=== PATIENT | male | born 1965 | race Caucasian/White ===

== ENCOUNTER 2017-11-15 12:51 | Emergency (ER) | payer MEDICAID ==
[~2017-11-15] VITALS: Ht 182.9 cm; Wt 149.7 kg
[2017-11-15 12:51] VITALS: BP_SYST 137
[2017-11-15] MEDS ORDERED: NACL 0.9% 1,000 ML IV ONE (13:22)
[2017-11-15 14:31] LABS: ANION GAP 5 (5-15); CALCIUM 9.8 mg/dL (8.4-11.0); CHLORIDE 102 mmol/L (98-107); CREATININE 0.93 mg/dL (0.55-1.30); GLUCOSE 108 mg/dL (70-99); POTASSIUM 4.2 mmol/L (3.5-5.1); SODIUM SERUM 139 mmol/L (136-145); UREA NITROGEN, BLOOD 7 mg/dL (8-21)
[2017-11-15 14:33] LABS: GFR AFRICAN AMERICAN 111 mL/min (>90)
[2017-11-15 14:34] LABS: BASOPHILS % (AUTO) 0.5 % (0.0-2.0); EOSINOPHILS # (AUTO) 0.1 K/uL (0.0-0.4); EOSINOPHILS % (AUTO) 1.9 % (0.0-4.0); HEMATOCRIT 47.1 % (36-54); HEMOGLOBIN 15.8 g/dL (14.0-18.0); LYMPHOCYTES # (AUTO) 0.9 K/uL (1.0-5.5); LYMPHOCYTES % (AUTO) 13.5 % (20.5-51.5); MEAN CORPUSCULAR HEMOGLOBIN 31 pg (27-31); MEAN CORPUSCULAR HGB CONC 34 % (32-36); MEAN CORPUSCULAR VOLUME 92 fL (79.0-98.0); MONOCYTES # (AUTO) 0.5 K/uL (0.0-1.0); MONOCYTES % (AUTO) 6.7 % (1.7-9.3); NEUTROPHILS # (AUTO) 5.5 K/uL (1.8-7.7); NEUTROPHILS % (AUTO) 77.4 % (40.0-70.0); PLATELET COUNT (AUTO) 272 K/uL (130-430); RED BLOOD CELL COUNT(AUTO) 5.11 MIL/uL (4.2-6.2); RED CELL DISTRIBUTION WIDTH 13.8 % (9.0-15.0)
[2017-11-15 14:39] LABS: ALANINE AMINOTRANSFERASE 21 U/L (12-78); ALBUMIN 4.4 g/dL (3.4-4.8); ASPARTATE AMINOTRANSFERASE 14 U/L (10-37); TOTAL BILIRUBIN 0.9 mg/dL (0.0-1.0)
[2017-11-15 14:42] LABS: ACETAMINOPHEN < 1 ug/mL (1-30); ALCOHOL, BLOOD < 3 mg/dL (<10)
[2017-11-15] MEDS ORDERED: KETOROLAC TROMETHAMINE 30 MG VIAL IVP ONE (15:00)
[2017-11-15 15:21] LABS: BARBITURATE, URINE NEGATIVE (NEG <=200); BENZODIAZEPINE, URINE POSITIVE (NEG <=150); CANNABINOID, URINE NEGATIVE (NEG <=50); COCAINE, URINE POSITIVE (NEG <=150); METHAMPHETAMINES SCREEN,URINE NEGATIVE (NEG <=500); OPIATE, URINE POSITIVE (NEG <=100); PHENCYCLIDINE SCREEN,URINE NEGATIVE (NEG <=25); UR TRICYCLIC ANTIDEPRESSANTS NEGATIVE (NEG <=300); URINE AMPHETAMINE NEGATIVE (NEG <=500); URINE METHADONE NEGATIVE (NEG <=200); URINE OXYCODONE SCREEN NEGATIVE (NEG <=100); URINE PROPOXYPHENE SCREEN NEGATIVE (NEG <=300)
[2017-11-15 16:20] VITALS: BP_SYST 169
== END 2017-11-15 16:20 | disposition home or self-care (01) ==
LOC: SED 12:51
DX: R55 Syncope and collapse (principal); F19.10 Other psychoactive substance abuse, uncomplicated; F32.9 Major depressive disorder, single episode, unspecified; J45.909 Unspecified asthma, uncomplicated; I10 Essential (primary) hypertension
CPT/HCPCS: 36415; 70450; 71045; 72040; 80053; 80307; 84484; 85025; 93005; 96361; 96374; 99285; G0480; G0481; G0482; J1885; J7030

== ENCOUNTER 2019-07-20 17:26 | Emergency (ER) | payer MEDICAID ==
[~2019-07-20] VITALS: Ht 185.4 cm; Wt 154.2 kg
[2019-07-20 18:20] VITALS: BP_SYST 182
--- NOTE | 2019-07-20 18:24 | NUR ---
Patient triaged and placed in waiting room. VSS and patient appears in no acute distress at this time. Accompanied by self, awaiting available bed, and MD notified of need for MSE.
--- NOTE | 2019-07-20 21:53 | NUR ---
Patient to ER bed 1 to gown for evaluation. Side rails up. Report given to Yvonne BRASWELL.
--- NOTE | 2019-07-20 22:01 | NUR ---
Patient brought in [facility] for laceration to the left FA at 1400 today. Patient reports that he accidentally stabbed himself with a steak knife while cleaning today. 2.5 cm laceration noted to left forearm. Bleeding controlled. Upon arrival, patient had full range of motion with radial pulse present. Skin was warm and dry. Not reports that he is having weakness and pain to left arm. Patient reports he is unable to extend his fingers. Denies any nausea, vomiting or diarrhea. Last tetanus vaccine reports was 2 years ago. No other complaints/injuries per patient or as noted. Will continue to monitor.
--- NOTE | 2019-07-20 23:05 | NUR ---
Patient requesting medication for pain. Pain 03/12. MD notified.
[2019-07-20] MEDS ORDERED: KETOROLAC TROMETHAMINE 60 MG/2 ML VIAL IM ONE (23:15)
--- NOTE | 2019-07-20 23:22 | NUR ---
ER Dr. Ching at bedside examining patient.
[2019-07-20] MEDS ORDERED: MORPHINE 4 MG/ML INJ. SYRINGE IV ONE (23:30)
[2019-07-20] MEDS ORDERED: CEFAZOLIN 2 GM IVPB PREMIX 50 ML IV ONE (23:45)
[2019-07-21] MEDS ORDERED: CEFAZOLIN 2 GM IVPB PREMIX 50 ML IV ONE (00:11)
[2019-07-21 00:25] LABS: RED CELL DISTRIBUTION WIDTH 13.7 % (9.0-15.0)
[2019-07-21 00:29] LABS: CALCIUM 8.7 mg/dL (8.4-11.0); CREATININE 0.56 mg/dL (0.55-1.30); POTASSIUM 3.5 mmol/L (3.5-5.1)
[2019-07-21 00:31] LABS: BASOPHILS # (AUTO) 0.1 K/uL (0.0-0.2); BASOPHILS % (AUTO) 0.7 % (0.0-2.0); EOSINOPHILS # (AUTO) 0.3 K/uL (0.0-0.4); EOSINOPHILS % (AUTO) 3.3 % (0.0-4.0); HEMATOCRIT 42.9 % (36-54); HEMOGLOBIN 14.4 g/dL (14.0-18.0); LYMPHOCYTES # (AUTO) 2.3 K/uL (1.0-5.5); LYMPHOCYTES % (AUTO) 24.8 % (20.5-51.5); MEAN CORPUSCULAR HEMOGLOBIN 30 pg (27-31); MEAN CORPUSCULAR HGB CONC 34 % (32-36); MEAN CORPUSCULAR VOLUME 90 fL (79.0-98.0); MONOCYTES # (AUTO) 0.5 K/uL (0.0-1.0); MONOCYTES % (AUTO) 5.1 % (1.7-9.3); NEUTROPHILS % (AUTO) 66.1 % (40.0-70.0); PLATELET COUNT (AUTO) 205 K/uL (130-430); RED BLOOD CELL COUNT(AUTO) 4.77 MIL/uL (4.2-6.2); WHITE BLOOD COUNT (AUTO) 9.1 K/uL (4.8-10.8)
--- NOTE | 2019-07-21 00:52 | NUR ---
off unit to CT Scan
[2019-07-21] MEDS ORDERED: IOHEXOL 100 ML IV ONE (01:02)
[2019-07-21] MEDS ORDERED: IOHEXOL 350 mgI/mL, 150 ML INFUS..BTL IV ONE (01:05)
--- NOTE | 2019-07-21 01:18 | NUR ---
Patient complaining of pain 03/12. MD notified.
[2019-07-21] MEDS ORDERED: fentaNYL CITRATE/PF 100 MCG/2 ML AMP IVP ONE (01:45)
--- NOTE | 2019-07-21 01:57 | NUR ---
ER Dr. Ching at bedside examining patient.
--- NOTE | 2019-07-21 02:09 | NUR ---
medicated per md orders. patient tolerated well
[2019-07-21 03:53] VITALS: BP_SYST 155
--- NOTE | 2019-07-21 03:54 | NUR ---
Patient to be transferred to [facility]. Is being transferred due to higher level of care. Receiving facility has accepting physician and available space. ER physician has signed transfer form. Patient or responsible constitution party has agreed to transfer and signed form. Patient belongings inventoried and will be sent with patient. Copy of nursing notes, lab reports, EKG, Physicians Orders and X-rays to be sent with patient. Report called to Josefina at receiving facility. Receiving physician is DR. MARCELO. [facility] ambulance service has been called for transfer.
== END 2019-07-21 03:53 | disposition short-term general hospital (02) ==
LOC: SED 17:26
DX: S56.522A Laceration of other extensor muscle, fascia and tendon at forearm level, left arm, initial encounter (principal); J45.909 Unspecified asthma, uncomplicated; I10 Essential (primary) hypertension; W26.0XXA Contact with knife, initial encounter; Y93.89 Activity, other specified; Y92.89 Other specified places as the place of occurrence of the external cause; Y99.8 Other external cause status
CPT/HCPCS: 36415; 73090; 73206; 80048; 85025; 86886; 86900; 86901; 96365; 96372; 96375 ×2; 99285; J0690; J1885; J2270; J3010; Q9967 ×2

== ENCOUNTER 2021-12-21 13:38 | Emergency (ER) | payer MEDICAID ==
[2021-12-21 13:53] VITALS: BP_SYST 132
[2021-12-21 14:14] VITALS: BP_SYST 132
[2021-12-21] MEDS ORDERED: methylPREDNISolone SOD SUCC/PF 62.5 MG/ML VIAL IVP ONE (14:30)
[2021-12-21] MEDS ORDERED: ALBUTEROL SULFATE 0.083% 2.5 MG/3 ML VIAL.NEB INH ONE (14:30)
[2021-12-21 14:53] LABS: BASOPHILS % (AUTO) 0.1 % (0.0-2.0); EOSINOPHILS # (AUTO) 0.8 K/uL (0.0-0.4); EOSINOPHILS % (AUTO) 6.7 % (0.0-4.0); HEMATOCRIT 42.6 % (36-54); HEMOGLOBIN 13.7 g/dL (14.0-18.0); LYMPHOCYTES % (AUTO) 8.9 % (20.5-51.5); MEAN CORPUSCULAR HEMOGLOBIN 29 pg (27-31); MEAN CORPUSCULAR HGB CONC 32 % (32-36); MEAN CORPUSCULAR VOLUME 89 fL (79.0-98.0); MONOCYTES # (AUTO) 0.7 K/uL (0.0-1.0); NEUTROPHILS # (AUTO) 9.2 K/uL (1.8-7.7); NEUTROPHILS % (AUTO) 78.3 % (40.0-70.0); PLATELET COUNT (AUTO) 187 K/uL (130-430); RED CELL DISTRIBUTION WIDTH 14.7 % (9.0-15.0); WHITE BLOOD COUNT (AUTO) 11.7 K/uL (4.8-10.8)
[2021-12-21 15:12] LABS: ANION GAP 3 (5-15); CALCIUM 8.4 mg/dL (8.4-11.0); CHLORIDE 104 mmol/L (98-107); CREATININE 0.98 mg/dL (0.55-1.30); GLUCOSE 121 mg/dL (70-99); POTASSIUM 4.4 mmol/L (3.5-5.1); SODIUM SERUM 138 mmol/L (136-145); UREA NITROGEN, BLOOD 29 mg/dL (8-21)
[2021-12-21 15:20] LABS: ALANINE AMINOTRANSFERASE 24 U/L (12-78); ASPARTATE AMINOTRANSFERASE 27 U/L (10-37); TOTAL BILIRUBIN 0.1 mg/dL (0.0-1.0)
[2021-12-21 15:22] LABS: GFR AFRICAN AMERICAN 103 mL/min (>90)
[2021-12-21] MEDS ORDERED: ALBU2.5V7 INH (15:38)
[2021-12-21] MEDS ORDERED: PRED20TA PO (15:38)
== END 2021-12-21 16:20 | disposition home or self-care (01) ==
LOC: SED 13:38
DX: J45.901 Unspecified asthma with (acute) exacerbation (principal); R06.02 Shortness of breath; I10 Essential (primary) hypertension; Z88.2 Allergy status to sulfonamides; Z79.899 Other long term (current) drug therapy
CPT/HCPCS: 80053; 85025; 84484; 36415; 93005; 71045; 94640; 99285; 96374; J2930; J7613; 94760

== ENCOUNTER 2022-05-04 16:59 | Inpatient (IN) | payer MEDICAID ==
[~2022-05-04] VITALS: Ht 185.4 cm; Wt 119.3 kg
[2022-05-04] MEDS: PIPERACILLIN/TAZO 4.5GM/DEX-IS 100 ML IV SCH (03:00)
[~2022-05-04 16:59] MED LIST: ALBU2.5V7 INH
[2022-05-04] MEDS ORDERED: IPRATROPIUM/ALBUTEROL SULFATE 3 ML AMPUL.NEB (DUONEB) ONE (17:09)
[2022-05-04] MEDS ORDERED: ALBUTEROL SULFATE 0.083% 2.5 MG/3 ML VIAL.NEB INH ONE ×3 (17:15→22:30)
[2022-05-04] MEDS ORDERED: predniSONE 20 MG TABLET PO ONE (17:15)
[2022-05-04] MEDS ORDERED: IPRATROPIUM BROM 0.5 MG/2.5 ML VIAL.NEB (ATROVENT) INH ONE (17:15)
[2022-05-04 17:21] VITALS: BP_SYST 160
[2022-05-04] MEDS ORDERED: NACL 0.9% 1,000 ML IV ONE (19:45)
[2022-05-04] MEDS ORDERED: MAGNESIUM SULFATE 50 ML IV ONE (19:45)
[2022-05-04] MEDS ORDERED: VECURONIUM BROMIDE 10 MG/VIAL (NORCURON) ONE (19:59)
[2022-05-04] MEDS ORDERED: fentaNYL CITRATE/PF 100 MCG/2 ML AMP ONE (20:26)
[2022-05-04] MEDS ORDERED: PROPOFOL DRIP 100 ML IV ONE ×2 (20:30→21:45)
[2022-05-04 20:54] LABS: BASOPHILS # (AUTO) 0.4 K/uL (0.0-0.2); BASOPHILS % (AUTO) 1.5 % (0.0-2.0); HEMATOCRIT 45.2 % (36-54); HEMOGLOBIN 14.4 g/dL (14.0-18.0); LYMPHOCYTES # (AUTO) 2.9 K/uL (1.0-5.5); LYMPHOCYTES % (AUTO) 11.6 % (20.5-51.5); MEAN CORPUSCULAR HEMOGLOBIN 30 pg (27-31); MEAN CORPUSCULAR HGB CONC 32 % (32-36); MEAN CORPUSCULAR VOLUME 93 fL (79.0-98.0); MONOCYTES # (AUTO) 1.1 K/uL (0.0-1.0); MONOCYTES % (AUTO) 4.6 % (1.7-9.3); NEUTROPHILS # (AUTO) 18.4 K/uL (1.8-7.7); NEUTROPHILS % (AUTO) 74.3 % (40.0-70.0); PLATELET COUNT (AUTO) 275 K/uL (130-430); RED BLOOD CELL COUNT(AUTO) 4.87 MIL/uL (4.2-6.2); RED CELL DISTRIBUTION WIDTH 14.9 % (9.0-15.0); WHITE BLOOD COUNT (AUTO) 24.8 K/uL (4.8-10.8)
[2022-05-04 21:02] LABS: CALCIUM 8.7 mg/dL (8.4-11.0); CREATININE 0.99 mg/dL (0.55-1.30)
[2022-05-04 21:08] LABS: ALBUMIN 3.8 g/dL (3.4-4.8); TOTAL BILIRUBIN 0.2 mg/dL (0.0-1.0)
[2022-05-04] MEDS: METHYLPREDNISOLONE SOD SUCC 40 MG/ML VIAL IVP SCH (21:45)
[2022-05-04] MEDS ORDERED: AZITHROMYCIN 500 MG in NS 250 ML IV ONE (21:45)
[2022-05-04] MEDS ORDERED: cefTRIAXone 1 GM in D5W 50 ML IV SCH (21:45)
[2022-05-04] MEDS ORDERED: iohexoL 350 mgI/mL, 100 ML INFUS..BTL IV ONE (21:49)
[2022-05-04] MEDS ORDERED: D5LR 1,000 ML IV SCH (22:00)
[2022-05-04] MEDS ORDERED: methylPREDNISolone SOD SUCC/PF 62.5 MG/ML VIAL IVP ONE (22:30)
[2022-05-04] MEDS ORDERED: RACEPINEPHRINE HCL 0.5 ML VIAL.NEB INH ONE ×2 (23:00→23:34)
[2022-05-04 23:54] VITALS: BP_SYST 160
[2022-05-05] VITALS (34 sets, daily range): BP systolic 80–185
[2022-05-05] MEDS: IPRATROPIUM/ALBUTEROL SULFATE 3 ML AMPUL.NEB (DUONEB) INH SCH ×7 (00:15→23:05)
[2022-05-05] MEDS ORDERED: PIPERACILLIN/TAZOBACTAM 4.5 GM/VIAL (ZOSYN) IV ONE (01:20)
[2022-05-05] MEDS ORDERED: cefTRIAXone 1 GM IVPB PREMIX 50 ML IV ONE (01:20)
[2022-05-05] MEDS ORDERED: AZITHROMYCIN 500 MG/VIAL (ZITHROMAX) IV ONE (01:20)
[2022-05-05] MEDS ORDERED: NOREPINEPHRINE BITARTRATE 8 MG in NS 242 ML IV PRN (02:00)
[2022-05-05] MEDS ORDERED: NOREPINEPHRINE 4 MG/4 ML VIAL IV ONE (02:01)
[2022-05-05] MEDS: PROPOFOL DRIP 100 ML IV PRN ×7 (02:26→23:37)
[2022-05-05] MEDS: LR 1,000 ML IV SCH ×4 (02:45→22:34)
[2022-05-05] MEDS: METHYLPREDNISOLONE SOD SUCC 40 MG/ML VIAL IVP SCH ×4 (03:45→21:05)
[2022-05-05] MEDS: PIPERACILLIN/TAZO 4.5GM/DEX-IS 100 ML IV SCH ×2 (06:00)
[2022-05-05] MEDS: PIPERACILLIN/TAZO 3.375/DEX-IS 50 ML IV SCH ×4 (06:00→23:58)
[2022-05-05 07:46] LABS: ALBUMIN 3.2 g/dL (3.4-4.8); CALCIUM 7.9 mg/dL (8.4-11.0); CREATININE 1.24 mg/dL (0.55-1.30); TOTAL BILIRUBIN 0.4 mg/dL (0.0-1.0)
[2022-05-05 08:13] LABS: HEMATOCRIT 43.6 % (36-54); HEMOGLOBIN 14.2 g/dL (14.0-18.0); MEAN CORPUSCULAR HEMOGLOBIN 30 pg (27-31); MEAN CORPUSCULAR HGB CONC 33 % (32-36); MEAN CORPUSCULAR VOLUME 92 fL (79.0-98.0); PLATELET COUNT (AUTO) 221 K/uL (130-430); RED BLOOD CELL COUNT(AUTO) 4.76 MIL/uL (4.2-6.2); RED CELL DISTRIBUTION WIDTH 14.5 % (9.0-15.0); WHITE BLOOD COUNT (AUTO) 29.3 K/uL (4.8-10.8)
[2022-05-05] MEDS: FENTANYL CITRATE-0.9 % NACL/PF 100 ML IV PRN ×2 (08:31→20:29)
[2022-05-05] MEDS ORDERED: VANCOMYCIN HCL 1,500 MG in NS 250 ML IV SCH (13:00)
[2022-05-05] MEDS: AZITHROMYCIN 500 MG in NS 250 ML IV SCH (13:22)
[2022-05-05 14:04] LABS: BAND % (MANUAL) 8 % (0-6); BASOPHILS % (MANUAL) 0 % (0-2); EOSINOPHILS % (MANUAL) 0 % (0-7); LYMPHOCYTES % (MANUAL) 3 % (20-46); MONOCYTES % (MANUAL) 2 % (0-11)
[2022-05-05] MEDS ORDERED: MIDAZOLAM IN NACL,ISO-OSMOT/PF 100 ML IV ONE (21:55)
[2022-05-05] MEDS: MIDAZOLAM IN NACL,ISO-OSMOT/PF 100 ML IV PRN (22:00)
[2022-05-06] VITALS (34 sets, daily range): BP systolic 120–188
[2022-05-06] MEDS: IPRATROPIUM/ALBUTEROL SULFATE 3 ML AMPUL.NEB (DUONEB) INH SCH ×6 (03:10→23:30)
[2022-05-06] MEDS: METHYLPREDNISOLONE SOD SUCC 40 MG/ML VIAL IVP SCH ×4 (03:45→22:10)
[2022-05-06] MEDS: LR 1,000 ML IV SCH ×3 (04:40→17:23)
[2022-05-06] MEDS: cloNIDine HCL 0.1 MG TABLET PO PRN ×4 (06:00→20:05)
[2022-05-06] MEDS ORDERED: cloNIDine HCL 0.2 MG TABLET ONE (06:00)
[2022-05-06] MEDS: PIPERACILLIN/TAZO 3.375/DEX-IS 50 ML IV SCH ×3 (07:06→17:30)
[2022-05-06 07:22] LABS: BASOPHILS % (AUTO) 0.1 % (0.0-2.0); HEMOGLOBIN 13.3 g/dL (14.0-18.0); LYMPHOCYTES # (AUTO) 0.3 K/uL (1.0-5.5); LYMPHOCYTES % (AUTO) 1.5 % (20.5-51.5); MEAN CORPUSCULAR HEMOGLOBIN 30 pg (27-31); MEAN CORPUSCULAR HGB CONC 33 % (32-36); MEAN CORPUSCULAR VOLUME 89 fL (79.0-98.0); MONOCYTES # (AUTO) 0.4 K/uL (0.0-1.0); MONOCYTES % (AUTO) 1.8 % (1.7-9.3); PLATELET COUNT (AUTO) 165 K/uL (130-430); RED BLOOD CELL COUNT(AUTO) 4.51 MIL/uL (4.2-6.2); RED CELL DISTRIBUTION WIDTH 14.5 % (9.0-15.0); WHITE BLOOD COUNT (AUTO) 19.7 K/uL (4.8-10.8)
[2022-05-06 07:47] LABS: CALCIUM 8.5 mg/dL (8.4-11.0); CREATININE 0.95 mg/dL (0.55-1.30); PHOSPHORUS 3.5 mg/dL (2.7-4.5); TOTAL BILIRUBIN 0.4 mg/dL (0.0-1.0)
[2022-05-06 08:05] LABS: NEUTROPHILS % (AUTO) 96.6 % (40.0-70.0)
[2022-05-06] MEDS: PROPOFOL DRIP 100 ML IV PRN (09:37)
[2022-05-06] MEDS: MIDAZOLAM IN NACL,ISO-OSMOT/PF 100 ML IV PRN (10:16)
[2022-05-06] MEDS ORDERED: CARVEDILOL 25 MG TABLET (COREG) PO ONE (14:15)
[2022-05-06] MEDS: AZITHROMYCIN 500 MG in NS 250 ML IV SCH (14:18)
[2022-05-06 14:33] LABS: BILIRUBIN,URINE NEGATIVE (NEGATIVE); BLOOD, URINE NEGATIVE (NEGATIVE); CLARITY/URINE CLEAR (CLEAR); COLOR,URINE YELLOW (YELLOW); GLUCOSE,URINE NEGATIVE (NEGATIVE); KETONES,URINE NEGATIVE (NEGATIVE); LEUKOCYTE ESTERASE ,URINE NEGATIVE (NEGATIVE); NITRITE, URINE NEGATIVE (NEGATIVE); PROTEIN URINE NEGATIVE (NEGATIVE); UROBILINOGEN,URINE 0.2 (0.2-1.0)
[2022-05-06 14:46] LABS: BARBITURATE, URINE NEGATIVE (NEG <=200); BENZODIAZEPINE, URINE POSITIVE (NEG <=150); CANNABINOID, URINE NEGATIVE (NEG <=50); COCAINE, URINE NEGATIVE (NEG <=150); METHAMPHETAMINES SCREEN,URINE NEGATIVE (NEG <=500); OPIATE, URINE NEGATIVE (NEG <=100); PHENCYCLIDINE SCREEN,URINE NEGATIVE (NEG <=25); UR TRICYCLIC ANTIDEPRESSANTS NEGATIVE (NEG <=300); URINE AMPHETAMINE NEGATIVE (NEG <=500); URINE METHADONE NEGATIVE (NEG <=200); URINE OXYCODONE SCREEN NEGATIVE (NEG <=100); URINE PROPOXYPHENE SCREEN NEGATIVE (NEG <=300)
[2022-05-06] MEDS: IPRATROPIUM/ALBUTEROL SULFATE 3 ML AMPUL.NEB (DUONEB) INH PRN (15:37)
[2022-05-06] MEDS: FENTANYL CITRATE-0.9 % NACL/PF 100 ML IV PRN (20:30)
[2022-05-06] MEDS: CARVEDILOL 25 MG TABLET (COREG) PO SCH (21:00)
[2022-05-07] VITALS (30 sets, daily range): BP systolic 127–186
[2022-05-07] MEDS: PIPERACILLIN/TAZO 3.375/DEX-IS 50 ML IV SCH ×5 (00:08→23:37)
[2022-05-07] MEDS: CARVEDILOL 25 MG TABLET (COREG) PO SCH ×3 (00:11→21:31)
[2022-05-07] MEDS: PROPOFOL DRIP 100 ML IV PRN ×6 (00:41→20:18)
[2022-05-07] MEDS: MIDAZOLAM IN NACL,ISO-OSMOT/PF 100 ML IV PRN ×2 (00:41→15:37)
[2022-05-07] MEDS: LR 1,000 ML IV SCH ×4 (00:43→20:49)
[2022-05-07] MEDS: IPRATROPIUM/ALBUTEROL SULFATE 3 ML AMPUL.NEB (DUONEB) INH SCH ×6 (02:55→23:05)
[2022-05-07] MEDS: METHYLPREDNISOLONE SOD SUCC 40 MG/ML VIAL IVP SCH ×4 (03:45→21:33)
[2022-05-07] MEDS: FENTANYL CITRATE-0.9 % NACL/PF 100 ML IV PRN (06:12)
[2022-05-07 06:54] LABS: HEMATOCRIT 36.8 % (36-54); HEMOGLOBIN 12.2 g/dL (14.0-18.0); LYMPHOCYTES # (AUTO) 0.5 K/uL (1.0-5.5); LYMPHOCYTES % (AUTO) 4.3 % (20.5-51.5); MEAN CORPUSCULAR HEMOGLOBIN 30 pg (27-31); MEAN CORPUSCULAR HGB CONC 33 % (32-36); MEAN CORPUSCULAR VOLUME 90 fL (79.0-98.0); MONOCYTES # (AUTO) 0.6 K/uL (0.0-1.0); MONOCYTES % (AUTO) 5.4 % (1.7-9.3); NEUTROPHILS # (AUTO) 10.7 K/uL (1.8-7.7); NEUTROPHILS % (AUTO) 90.3 % (40.0-70.0); PLATELET COUNT (AUTO) 169 K/uL (130-430); RED BLOOD CELL COUNT(AUTO) 4.09 MIL/uL (4.2-6.2); RED CELL DISTRIBUTION WIDTH 14.6 % (9.0-15.0); WHITE BLOOD COUNT (AUTO) 11.9 K/uL (4.8-10.8)
[2022-05-07] MEDS: cloNIDine HCL 0.1 MG TABLET PO PRN ×3 (06:59→20:08)
[2022-05-07 07:51] LABS: CALCIUM 8.9 mg/dL (8.4-11.0); CREATININE 0.77 mg/dL (0.55-1.30)
[2022-05-07] MEDS: hydrALAZINE HCL 20 MG/ML VIAL IVP PRN ×2 (08:41→23:55)
[2022-05-07] MEDS: AZITHROMYCIN 500 MG in NS 250 ML IV SCH (13:24)
[2022-05-07] MEDS: IPRATROPIUM/ALBUTEROL SULFATE 3 ML AMPUL.NEB (DUONEB) INH PRN (13:47)
[2022-05-08] VITALS (38 sets, daily range): BP systolic 134–170
[2022-05-08] MEDS: cloNIDine HCL 0.1 MG TABLET PO PRN ×2 (01:43→06:46)
[2022-05-08] MEDS: PROPOFOL DRIP 100 ML IV PRN ×5 (02:19→16:20)
[2022-05-08] MEDS: LR 1,000 ML IV SCH ×4 (03:20→22:18)
[2022-05-08] MEDS: IPRATROPIUM/ALBUTEROL SULFATE 3 ML AMPUL.NEB (DUONEB) INH SCH ×6 (03:28→23:29)
[2022-05-08] MEDS: METHYLPREDNISOLONE SOD SUCC 40 MG/ML VIAL IVP SCH ×4 (04:16→21:58)
[2022-05-08] MEDS: hydrALAZINE HCL 20 MG/ML VIAL IVP PRN ×2 (04:23→13:34)
[2022-05-08] MEDS: PIPERACILLIN/TAZO 3.375/DEX-IS 50 ML IV SCH ×3 (05:51→18:21)
[2022-05-08] MEDS: MIDAZOLAM IN NACL,ISO-OSMOT/PF 100 ML IV PRN ×2 (05:57→22:15)
[2022-05-08 06:40] LABS: BASOPHILS % (AUTO) 0.1 % (0.0-2.0); EOSINOPHILS % (AUTO) 0.2 % (0.0-4.0); HEMATOCRIT 42.1 % (36-54); HEMOGLOBIN 14.1 g/dL (14.0-18.0); LYMPHOCYTES # (AUTO) 0.3 K/uL (1.0-5.5); LYMPHOCYTES % (AUTO) 4.1 % (20.5-51.5); MEAN CORPUSCULAR HEMOGLOBIN 30 pg (27-31); MEAN CORPUSCULAR HGB CONC 34 % (32-36); MEAN CORPUSCULAR VOLUME 89 fL (79.0-98.0); MONOCYTES # (AUTO) 0.2 K/uL (0.0-1.0); MONOCYTES % (AUTO) 2.4 % (1.7-9.3); NEUTROPHILS # (AUTO) 6.1 K/uL (1.8-7.7); NEUTROPHILS % (AUTO) 93.2 % (40.0-70.0); PLATELET COUNT (AUTO) 161 K/uL (130-430); RED BLOOD CELL COUNT(AUTO) 4.72 MIL/uL (4.2-6.2); RED CELL DISTRIBUTION WIDTH 14.9 % (9.0-15.0); WHITE BLOOD COUNT (AUTO) 6.6 K/uL (4.8-10.8)
[2022-05-08 07:11] LABS: ALBUMIN 2.7 g/dL (3.4-4.8); CALCIUM 8.9 mg/dL (8.4-11.0); CREATININE 0.83 mg/dL (0.55-1.30); PHOSPHORUS 4.5 mg/dL (2.7-4.5); TOTAL BILIRUBIN 0.4 mg/dL (0.0-1.0)
[2022-05-08] MEDS: CARVEDILOL 25 MG TABLET (COREG) PO SCH ×2 (08:51→21:13)
[2022-05-08] MEDS: AZITHROMYCIN 500 MG in NS 250 ML IV SCH (12:55)
[2022-05-08] MEDS: hydrALAZINE HCL 25 MG TABLET PO SCH ×2 (18:15→18:19)
[2022-05-08 20:06] LABS: MYCOPLASMA PNEUMONIAE IgM <770 U/mL (0-769)
[2022-05-08] MEDS: FENTANYL CITRATE-0.9 % NACL/PF 100 ML IV PRN ×2 (23:02)
[2022-05-09] VITALS (37 sets, daily range): BP systolic 144–182
[2022-05-09] MEDS: hydrALAZINE HCL 20 MG/ML VIAL IVP PRN ×3 (00:15→11:11)
[2022-05-09] MEDS: PIPERACILLIN/TAZO 3.375/DEX-IS 50 ML IV SCH ×5 (00:18→23:17)
[2022-05-09] MEDS: IPRATROPIUM/ALBUTEROL SULFATE 3 ML AMPUL.NEB (DUONEB) INH SCH ×6 (02:31→23:05)
[2022-05-09] MEDS: METHYLPREDNISOLONE SOD SUCC 40 MG/ML VIAL IVP SCH ×4 (03:30→20:53)
[2022-05-09] MEDS: LR 1,000 ML IV SCH (05:06)
[2022-05-09] MEDS: hydrALAZINE HCL 25 MG TABLET PO SCH ×3 (05:20→21:33)
[2022-05-09] MEDS ORDERED: DEXMEDETOMIDINE HCL 200 MCG/2 ML VIAL IV ONE (05:42)
[2022-05-09] MEDS ORDERED: hydrALAZINE HCL 20 MG/ML VIAL ONE (06:38)
[2022-05-09] MEDS ORDERED: hydrALAZINE HCL 20 MG/ML VIAL IVP ONE (06:45)
[2022-05-09 06:49] LABS: BASOPHILS % (AUTO) 0.1 % (0.0-2.0); HEMATOCRIT 43.1 % (36-54); HEMOGLOBIN 14.5 g/dL (14.0-18.0); LYMPHOCYTES # (AUTO) 0.2 K/uL (1.0-5.5); LYMPHOCYTES % (AUTO) 2.9 % (20.5-51.5); MEAN CORPUSCULAR HEMOGLOBIN 30 pg (27-31); MEAN CORPUSCULAR HGB CONC 34 % (32-36); MEAN CORPUSCULAR VOLUME 89 fL (79.0-98.0); MONOCYTES # (AUTO) 0.2 K/uL (0.0-1.0); MONOCYTES % (AUTO) 2.7 % (1.7-9.3); NEUTROPHILS # (AUTO) 7.9 K/uL (1.8-7.7); NEUTROPHILS % (AUTO) 94.3 % (40.0-70.0); PLATELET COUNT (AUTO) 172 K/uL (130-430); RED BLOOD CELL COUNT(AUTO) 4.84 MIL/uL (4.2-6.2); RED CELL DISTRIBUTION WIDTH 14.9 % (9.0-15.0); WHITE BLOOD COUNT (AUTO) 8.4 K/uL (4.8-10.8)
[2022-05-09 06:50] LABS: CALCIUM 8.8 mg/dL (8.4-11.0); CREATININE 0.68 mg/dL (0.55-1.30)
[2022-05-09] MEDS: NACL 0.9% 1,000 ML IV SCH (09:21)
[2022-05-09] MEDS: CARVEDILOL 25 MG TABLET (COREG) PO SCH ×2 (09:26→20:54)
[2022-05-09] MEDS: NICOTINE 14 MG/24 HR PATCH.TD24 TD SCH (11:13)
[2022-05-09] MEDS: AZITHROMYCIN 500 MG in NS 250 ML IV SCH (13:54)
[2022-05-09] MEDS ORDERED: LABETALOL HCL 20 MG/4 ML CARTRIDGE IVP PRN (17:45)
[2022-05-10] VITALS (44 sets, daily range): BP systolic 108–170
[2022-05-10] MEDS: NACL 0.9% 1,000 ML IV SCH ×2 (01:15→17:57)
[2022-05-10] MEDS: IPRATROPIUM/ALBUTEROL SULFATE 3 ML AMPUL.NEB (DUONEB) INH SCH ×6 (02:50→23:18)
[2022-05-10] MEDS: METHYLPREDNISOLONE SOD SUCC 40 MG/ML VIAL IVP SCH ×4 (05:17→21:41)
[2022-05-10] MEDS: PIPERACILLIN/TAZO 3.375/DEX-IS 50 ML IV SCH ×3 (05:51→17:57)
[2022-05-10] MEDS: hydrALAZINE HCL 25 MG TABLET PO SCH ×3 (05:51→22:00)
[2022-05-10 08:07] LABS: BASOPHILS % (AUTO) 0.1 % (0.0-2.0); HEMATOCRIT 44.7 % (36-54); HEMOGLOBIN 14.8 g/dL (14.0-18.0); LYMPHOCYTES # (AUTO) 0.3 K/uL (1.0-5.5); LYMPHOCYTES % (AUTO) 3.9 % (20.5-51.5); MEAN CORPUSCULAR HEMOGLOBIN 30 pg (27-31); MEAN CORPUSCULAR HGB CONC 33 % (32-36); MEAN CORPUSCULAR VOLUME 90 fL (79.0-98.0); MONOCYTES # (AUTO) 0.3 K/uL (0.0-1.0); MONOCYTES % (AUTO) 3.9 % (1.7-9.3); NEUTROPHILS # (AUTO) 6.5 K/uL (1.8-7.7); NEUTROPHILS % (AUTO) 92.1 % (40.0-70.0); PLATELET COUNT (AUTO) 150 K/uL (130-430); RED BLOOD CELL COUNT(AUTO) 4.96 MIL/uL (4.2-6.2); RED CELL DISTRIBUTION WIDTH 14.8 % (9.0-15.0); WHITE BLOOD COUNT (AUTO) 7.1 K/uL (4.8-10.8)
[2022-05-10 10:17] LABS: ALBUMIN 2.5 g/dL (3.4-4.8); CREATININE 0.79 mg/dL (0.55-1.30); TOTAL BILIRUBIN 0.5 mg/dL (0.0-1.0)
[2022-05-10] MEDS: OLANZapine IntraMuscular 10 MG VIAL (FOR I.M. INJECTION ONLY) IM SCH ×2 (11:56→21:45)
[2022-05-10] MEDS: NICOTINE 14 MG/24 HR PATCH.TD24 TD SCH (11:57)
[2022-05-10] MEDS: CARVEDILOL 25 MG TABLET (COREG) PO SCH ×2 (11:59→22:12)
[2022-05-10] MEDS: MIDAZOLAM IN NACL,ISO-OSMOT/PF 100 ML IV PRN (12:02)
[2022-05-10 18:06] LABS: ASPERGILLUS FLAVUS Negative (Neg:<1:1); ASPERGILLUS FUMIGATUS Negative (Neg:<1:1)
[2022-05-10] MEDS ORDERED: OLANZapine IntraMuscular 10 MG VIAL (FOR I.M. INJECTION ONLY) IM SCH (21:00)
[2022-05-11] VITALS (31 sets, daily range): BP systolic 144–166
[2022-05-11] MEDS: PIPERACILLIN/TAZO 3.375/DEX-IS 50 ML IV SCH ×4 (00:25→18:14)
[2022-05-11] MEDS: MIDAZOLAM IN NACL,ISO-OSMOT/PF 100 ML IV PRN (03:28)
[2022-05-11] MEDS: IPRATROPIUM/ALBUTEROL SULFATE 3 ML AMPUL.NEB (DUONEB) INH SCH ×6 (03:31→23:14)
[2022-05-11] MEDS: METHYLPREDNISOLONE SOD SUCC 40 MG/ML VIAL IVP SCH ×4 (04:48→21:10)
[2022-05-11] MEDS: hydrALAZINE HCL 25 MG TABLET PO SCH ×3 (06:04→23:29)
[2022-05-11 06:51] LABS: HEMOGLOBIN 15.2 g/dL (14.0-18.0); LYMPHOCYTES # (AUTO) 0.5 K/uL (1.0-5.5); LYMPHOCYTES % (AUTO) 4.8 % (20.5-51.5); MEAN CORPUSCULAR HEMOGLOBIN 30 pg (27-31); MEAN CORPUSCULAR HGB CONC 34 % (32-36); MEAN CORPUSCULAR VOLUME 90 fL (79.0-98.0); MONOCYTES # (AUTO) 0.3 K/uL (0.0-1.0); MONOCYTES % (AUTO) 3.2 % (1.7-9.3); NEUTROPHILS # (AUTO) 9.1 K/uL (1.8-7.7); PLATELET COUNT (AUTO) 156 K/uL (130-430); RED BLOOD CELL COUNT(AUTO) 4.99 MIL/uL (4.2-6.2); RED CELL DISTRIBUTION WIDTH 14.4 % (9.0-15.0); WHITE BLOOD COUNT (AUTO) 9.9 K/uL (4.8-10.8)
[2022-05-11 07:12] LABS: CALCIUM 8.6 mg/dL (8.4-11.0); CREATININE 0.79 mg/dL (0.55-1.30)
[2022-05-11] MEDS: CARVEDILOL 25 MG TABLET (COREG) PO SCH ×2 (09:03→21:11)
[2022-05-11] MEDS: NICOTINE 14 MG/24 HR PATCH.TD24 TD SCH (09:06)
[2022-05-11] MEDS: OLANZapine IntraMuscular 10 MG VIAL (FOR I.M. INJECTION ONLY) IM SCH ×2 (09:07→21:11)
[2022-05-11] MEDS: NACL 0.9% 1,000 ML IV SCH (09:07)
[2022-05-11] MEDS: D5W 1,000 ML IV SCH (12:07)
[2022-05-11] MEDS ORDERED: MENTHOL/ZINC OXIDE 113 GM OINT. TP PRN (17:30)
[2022-05-12] VITALS (36 sets, daily range): BP systolic 132–160
[2022-05-12] MEDS: MIDAZOLAM IN NACL,ISO-OSMOT/PF 100 ML IV PRN ×2 (02:54→21:11)
[2022-05-12] MEDS: IPRATROPIUM/ALBUTEROL SULFATE 3 ML AMPUL.NEB (DUONEB) INH SCH ×6 (03:06→23:20)
[2022-05-12] MEDS: METHYLPREDNISOLONE SOD SUCC 40 MG/ML VIAL IVP SCH ×4 (03:32→23:58)
[2022-05-12] MEDS: D5W 1,000 ML IV SCH ×3 (04:32→19:54)
[2022-05-12] MEDS: hydrALAZINE HCL 25 MG TABLET PO SCH ×2 (05:54→14:12)
[2022-05-12 06:48] LABS: BASOPHILS % (AUTO) 0.1 % (0.0-2.0); HEMOGLOBIN 14.5 g/dL (14.0-18.0); LYMPHOCYTES # (AUTO) 0.3 K/uL (1.0-5.5); LYMPHOCYTES % (AUTO) 3.1 % (20.5-51.5); MEAN CORPUSCULAR HEMOGLOBIN 30 pg (27-31); MEAN CORPUSCULAR HGB CONC 34 % (32-36); MEAN CORPUSCULAR VOLUME 89 fL (79.0-98.0); MONOCYTES # (AUTO) 0.2 K/uL (0.0-1.0); MONOCYTES % (AUTO) 2.3 % (1.7-9.3); NEUTROPHILS # (AUTO) 9.3 K/uL (1.8-7.7); NEUTROPHILS % (AUTO) 94.5 % (40.0-70.0); PLATELET COUNT (AUTO) 151 K/uL (130-430); RED BLOOD CELL COUNT(AUTO) 4.82 MIL/uL (4.2-6.2); RED CELL DISTRIBUTION WIDTH 14.4 % (9.0-15.0); WHITE BLOOD COUNT (AUTO) 9.9 K/uL (4.8-10.8)
[2022-05-12 06:56] LABS: CALCIUM 7.7 mg/dL (8.4-11.0); CREATININE 0.66 mg/dL (0.55-1.30); PHOSPHORUS 2.8 mg/dL (2.7-4.5)
[2022-05-12] MEDS: OLANZapine IntraMuscular 10 MG VIAL (FOR I.M. INJECTION ONLY) IM SCH (09:03)
[2022-05-12] MEDS: CARVEDILOL 25 MG TABLET (COREG) PO SCH ×2 (09:07→23:59)
[2022-05-12] MEDS: NICOTINE 14 MG/24 HR PATCH.TD24 TD SCH (09:07)
[2022-05-12] MEDS ORDERED: ETOMIDATE 20 MG/ 10 ML VIAL (AMIDATE) IVP ONE (11:03)
[2022-05-12] MEDS ORDERED: ROCURONIUM BROMIDE 10 MG/ML (ZEMURON) IV ONE (11:03)
[2022-05-13] VITALS (24 sets, daily range): BP systolic 122–169
[2022-05-13] MEDS: METHYLPREDNISOLONE SOD SUCC 40 MG/ML VIAL IVP SCH ×4 (02:49→21:12)
[2022-05-13] MEDS: hydrALAZINE HCL 25 MG TABLET PO SCH ×4 (05:57→21:12)
[2022-05-13 08:04] LABS: CALCIUM 8.3 mg/dL (8.4-11.0); CREATININE 0.59 mg/dL (0.55-1.30)
[2022-05-13] MEDS: IPRATROPIUM/ALBUTEROL SULFATE 3 ML AMPUL.NEB (DUONEB) INH SCH ×4 (08:08→23:51)
[2022-05-13 08:13] LABS: BASOPHILS % (AUTO) 0.1 % (0.0-2.0); EOSINOPHILS % (AUTO) 0.1 % (0.0-4.0); HEMATOCRIT 45.8 % (36-54); HEMOGLOBIN 15.2 g/dL (14.0-18.0); LYMPHOCYTES # (AUTO) 0.3 K/uL (1.0-5.5); LYMPHOCYTES % (AUTO) 2.8 % (20.5-51.5); MEAN CORPUSCULAR HEMOGLOBIN 30 pg (27-31); MEAN CORPUSCULAR HGB CONC 33 % (32-36); MEAN CORPUSCULAR VOLUME 90 fL (79.0-98.0); MONOCYTES # (AUTO) 0.2 K/uL (0.0-1.0); NEUTROPHILS # (AUTO) 8.6 K/uL (1.8-7.7); PLATELET COUNT (AUTO) 154 K/uL (130-430); RED BLOOD CELL COUNT(AUTO) 5.08 MIL/uL (4.2-6.2); RED CELL DISTRIBUTION WIDTH 14.5 % (9.0-15.0); WHITE BLOOD COUNT (AUTO) 9.1 K/uL (4.8-10.8)
[2022-05-13] MEDS: NICOTINE 14 MG/24 HR PATCH.TD24 TD SCH (09:23)
[2022-05-13] MEDS: CARVEDILOL 25 MG TABLET (COREG) PO SCH ×2 (09:23→21:12)
[2022-05-13] MEDS: cloNIDine HCL 0.2 MG/24 HR PATCH.TDWK TD SCH (09:23)
[2022-05-13] MEDS: OLANZapine IntraMuscular 10 MG VIAL (FOR I.M. INJECTION ONLY) IM SCH ×3 (09:24→21:12)
[2022-05-13] MEDS: D5W 1,000 ML IV SCH (10:45)
[2022-05-13] MEDS: LR 1,000 ML IV SCH (16:44)
[2022-05-14] VITALS (18 sets, daily range): BP systolic 152–193
[2022-05-14] MEDS: IPRATROPIUM/ALBUTEROL SULFATE 3 ML AMPUL.NEB (DUONEB) INH PRN ×2 (01:51→23:48)
[2022-05-14] MEDS: METHYLPREDNISOLONE SOD SUCC 40 MG/ML VIAL IVP SCH ×4 (02:54→21:17)
[2022-05-14] MEDS: IPRATROPIUM/ALBUTEROL SULFATE 3 ML AMPUL.NEB (DUONEB) INH SCH ×6 (05:43→23:48)
[2022-05-14] MEDS: hydrALAZINE HCL 25 MG TABLET PO SCH ×3 (06:14→21:18)
[2022-05-14 07:00] LABS: CREATININE 0.7 mg/dL (0.55-1.30)
[2022-05-14 09:11] LABS: BASOPHILS % (AUTO) 0.1 % (0.0-2.0); HEMATOCRIT 52.3 % (36-54); HEMOGLOBIN 17.5 g/dL (14.0-18.0); LYMPHOCYTES # (AUTO) 0.3 K/uL (1.0-5.5); LYMPHOCYTES % (AUTO) 1.7 % (20.5-51.5); MEAN CORPUSCULAR HEMOGLOBIN 30 pg (27-31); MEAN CORPUSCULAR HGB CONC 34 % (32-36); MEAN CORPUSCULAR VOLUME 89 fL (79.0-98.0); MONOCYTES # (AUTO) 0.5 K/uL (0.0-1.0); MONOCYTES % (AUTO) 2.5 % (1.7-9.3); NEUTROPHILS # (AUTO) 19.9 K/uL (1.8-7.7); NEUTROPHILS % (AUTO) 95.7 % (40.0-70.0); PLATELET COUNT (AUTO) 260 K/uL (130-430); RED BLOOD CELL COUNT(AUTO) 5.89 MIL/uL (4.2-6.2); RED CELL DISTRIBUTION WIDTH 14.4 % (9.0-15.0); WHITE BLOOD COUNT (AUTO) 20.8 K/uL (4.8-10.8)
[2022-05-14] MEDS: LR 1,000 ML IV SCH (09:17)
[2022-05-14] MEDS: CARVEDILOL 25 MG TABLET (COREG) PO SCH ×2 (09:18→21:17)
[2022-05-14] MEDS: NICOTINE 14 MG/24 HR PATCH.TD24 TD SCH (09:19)
[2022-05-14] MEDS: OLANZapine IntraMuscular 10 MG VIAL (FOR I.M. INJECTION ONLY) IM SCH ×2 (09:20→21:18)
[2022-05-14] MEDS ORDERED: FUROSEMIDE 20 MG/2 ML VIAL ONE (09:52)
[2022-05-14] MEDS ORDERED: FUROSEMIDE 20 MG/2 ML VIAL IVP ONE (10:30)
[2022-05-14] MEDS: METOCLOPRAMIDE HCL 10 MG/2 ML VIAL IVP SCH ×2 (14:00→18:28)
[2022-05-14] MEDS: PIPERACILLIN/TAZO 4.5GM/DEX-IS 100 ML IV SCH ×2 (14:29→21:18)
[2022-05-14] MEDS: FUROSEMIDE 20 MG/2 ML VIAL IVP SCH (21:16)
[2022-05-14] MEDS: CEFEPIME 2 GM in D5W 100 ML IV SCH (21:19)
[2022-05-15] VITALS (22 sets, daily range): BP systolic 122–176
[2022-05-15] MEDS: LR 1,000 ML IV SCH ×2 (01:05→15:58)
[2022-05-15] MEDS: METOCLOPRAMIDE HCL 10 MG/2 ML VIAL IVP SCH ×5 (01:05→23:08)
[2022-05-15] MEDS: IPRATROPIUM/ALBUTEROL SULFATE 3 ML AMPUL.NEB (DUONEB) INH SCH ×6 (02:49→23:16)
[2022-05-15] MEDS: METHYLPREDNISOLONE SOD SUCC 40 MG/ML VIAL IVP SCH ×4 (03:09→21:04)
[2022-05-15] MEDS: PIPERACILLIN/TAZO 4.5GM/DEX-IS 100 ML IV SCH ×2 (05:54→21:04)
[2022-05-15] MEDS: hydrALAZINE HCL 25 MG TABLET PO SCH ×3 (05:54→21:04)
[2022-05-15 07:17] LABS: ALBUMIN 2.3 g/dL (3.4-4.8); CALCIUM 8.4 mg/dL (8.4-11.0); CREATININE 0.86 mg/dL (0.55-1.30); TOTAL BILIRUBIN 1.3 mg/dL (0.0-1.0)
[2022-05-15 07:29] LABS: HEMATOCRIT 50.4 % (36-54); HEMOGLOBIN 16.8 g/dL (14.0-18.0); MEAN CORPUSCULAR HEMOGLOBIN 30 pg (27-31); MEAN CORPUSCULAR HGB CONC 33 % (32-36); MEAN CORPUSCULAR VOLUME 90 fL (79.0-98.0); PLATELET COUNT (AUTO) 216 K/uL (130-430); RED CELL DISTRIBUTION WIDTH 14.1 % (9.0-15.0)
[2022-05-15] MEDS: NICOTINE 14 MG/24 HR PATCH.TD24 TD SCH (09:00)
[2022-05-15] MEDS: CEFEPIME 2 GM in D5W 100 ML IV SCH (09:43)
[2022-05-15] MEDS: OLANZapine IntraMuscular 10 MG VIAL (FOR I.M. INJECTION ONLY) IM SCH ×2 (09:46→21:04)
[2022-05-15] MEDS: FUROSEMIDE 20 MG/2 ML VIAL IVP SCH ×2 (09:53→21:03)
[2022-05-15] MEDS: CARVEDILOL 25 MG TABLET (COREG) PO SCH ×2 (09:55→21:03)
[2022-05-15 13:39] LABS: BAND % (MANUAL) 4 % (0-6); BASOPHILS % (MANUAL) 0 % (0-2); EOSINOPHILS % (MANUAL) 0 % (0-7); LYMPHOCYTES % (MANUAL) 1 % (20-46); MONOCYTES % (MANUAL) 4 % (0-11)
[2022-05-15] MEDS ORDERED: metroNIDAZOLE 500 mg/NS 100 ML IV ONE (14:30)
[2022-05-15] MEDS ORDERED: PIPERACILLIN/TAZO 4.5GM/DEX-IS 100 ML IV ONE (15:00)
[2022-05-15] MEDS: metroNIDAZOLE 500 mg/NS 100 ML IV SCH (21:04)
[2022-05-16] VITALS (24 sets, daily range): BP systolic 150–207
[2022-05-16] MEDS: IPRATROPIUM/ALBUTEROL SULFATE 3 ML AMPUL.NEB (DUONEB) INH SCH ×6 (02:08→23:12)
[2022-05-16] MEDS: METHYLPREDNISOLONE SOD SUCC 40 MG/ML VIAL IVP SCH ×3 (03:29→15:33)
[2022-05-16] MEDS: metroNIDAZOLE 500 mg/NS 100 ML IV SCH ×3 (05:54→21:19)
[2022-05-16] MEDS: METOCLOPRAMIDE HCL 10 MG/2 ML VIAL IVP SCH ×4 (05:54→23:10)
[2022-05-16] MEDS: PIPERACILLIN/TAZO 4.5GM/DEX-IS 100 ML IV SCH ×3 (05:54→21:19)
[2022-05-16] MEDS: hydrALAZINE HCL 25 MG TABLET PO SCH ×3 (05:57→21:20)
[2022-05-16 06:42] LABS: ALBUMIN 2.1 g/dL (3.4-4.8); CALCIUM 7.5 mg/dL (8.4-11.0); CREATININE 0.81 mg/dL (0.55-1.30)
[2022-05-16 07:40] LABS: BASOPHILS % (AUTO) 0.1 % (0.0-2.0); HEMATOCRIT 42.5 % (36-54); HEMOGLOBIN 14.6 g/dL (14.0-18.0); LYMPHOCYTES # (AUTO) 0.4 K/uL (1.0-5.5); LYMPHOCYTES % (AUTO) 1.3 % (20.5-51.5); MEAN CORPUSCULAR HEMOGLOBIN 30 pg (27-31); MEAN CORPUSCULAR HGB CONC 34 % (32-36); MEAN CORPUSCULAR VOLUME 88 fL (79.0-98.0); MONOCYTES # (AUTO) 0.6 K/uL (0.0-1.0); MONOCYTES % (AUTO) 2.3 % (1.7-9.3); NEUTROPHILS % (AUTO) 96.3 % (40.0-70.0); PLATELET COUNT (AUTO) 192 K/uL (130-430); RED BLOOD CELL COUNT(AUTO) 4.81 MIL/uL (4.2-6.2); RED CELL DISTRIBUTION WIDTH 14.3 % (9.0-15.0)
[2022-05-16] MEDS: NICOTINE 14 MG/24 HR PATCH.TD24 TD SCH (08:47)
[2022-05-16] MEDS: CARVEDILOL 25 MG TABLET (COREG) PO SCH ×2 (08:47→20:25)
[2022-05-16] MEDS: FUROSEMIDE 20 MG/2 ML VIAL IVP SCH ×2 (08:57→20:25)
[2022-05-16] MEDS: OLANZapine IntraMuscular 10 MG VIAL (FOR I.M. INJECTION ONLY) IM SCH ×2 (09:51→21:20)
[2022-05-16] MEDS: LR 1,000 ML IV SCH (10:07)
[2022-05-16] MEDS: hydrALAZINE HCL 20 MG/ML VIAL IVP PRN (12:02)
[2022-05-16] MEDS ORDERED: cloNIDine HCL 0.1 MG TABLET PO ONE (17:15)
[2022-05-16] MEDS: predniSONE 20 MG TABLET PO SCH (20:25)
[2022-05-16] MEDS ORDERED: METHYLPREDNISOLONE SOD SUCC 40 MG/ML VIAL IVP SCH (21:45)
[2022-05-16] MEDS ORDERED: cloNIDine HCL 0.1 MG TABLET PO PRN (23:00)
[2022-05-17] VITALS (21 sets, daily range): BP systolic 108–208
[2022-05-17] MEDS: IPRATROPIUM/ALBUTEROL SULFATE 3 ML AMPUL.NEB (DUONEB) INH SCH ×6 (02:43→23:25)
[2022-05-17] MEDS: LR 1,000 ML IV SCH (03:05)
[2022-05-17] MEDS: PIPERACILLIN/TAZO 4.5GM/DEX-IS 100 ML IV SCH ×3 (05:36→20:58)
[2022-05-17] MEDS: METOCLOPRAMIDE HCL 10 MG/2 ML VIAL IVP SCH (05:36)
[2022-05-17] MEDS: metroNIDAZOLE 500 mg/NS 100 ML IV SCH ×3 (05:36→20:58)
[2022-05-17] MEDS: hydrALAZINE HCL 25 MG TABLET PO SCH ×3 (05:36→21:01)
[2022-05-17 06:40] LABS: BASOPHILS % (AUTO) 0.1 % (0.0-2.0); HEMATOCRIT 39.1 % (36-54); HEMOGLOBIN 12.9 g/dL (14.0-18.0); LYMPHOCYTES # (AUTO) 0.3 K/uL (1.0-5.5); LYMPHOCYTES % (AUTO) 1.2 % (20.5-51.5); MEAN CORPUSCULAR HEMOGLOBIN 29 pg (27-31); MEAN CORPUSCULAR HGB CONC 33 % (32-36); MEAN CORPUSCULAR VOLUME 89 fL (79.0-98.0); MONOCYTES # (AUTO) 0.8 K/uL (0.0-1.0); MONOCYTES % (AUTO) 3.1 % (1.7-9.3); NEUTROPHILS # (AUTO) 26.3 K/uL (1.8-7.7); NEUTROPHILS % (AUTO) 95.6 % (40.0-70.0); PLATELET COUNT (AUTO) 167 K/uL (130-430); RED BLOOD CELL COUNT(AUTO) 4.42 MIL/uL (4.2-6.2); WHITE BLOOD COUNT (AUTO) 27.5 K/uL (4.8-10.8)
[2022-05-17 07:06] LABS: CALCIUM 7.9 mg/dL (8.4-11.0); CREATININE 0.56 mg/dL (0.55-1.30)
[2022-05-17] MEDS: predniSONE 20 MG TABLET PO SCH ×2 (09:18→20:59)
[2022-05-17] MEDS: CARVEDILOL 25 MG TABLET (COREG) PO SCH ×2 (09:18→20:59)
[2022-05-17] MEDS: FUROSEMIDE 20 MG/2 ML VIAL IVP SCH ×2 (09:19→20:59)
[2022-05-17] MEDS: OLANZapine IntraMuscular 10 MG VIAL (FOR I.M. INJECTION ONLY) IM SCH (09:25)
[2022-05-17] MEDS ORDERED: METOCLOPRAMIDE HCL 10 MG/2 ML VIAL IVP PRN (12:30)
[2022-05-17] MEDS ORDERED: QUEtiapine FUMARATE 25 MG TABLET PO ONE (12:30)
[2022-05-17] MEDS ORDERED: FAMOTIDINE PF 20 MG/2 ML VIAL IVP ONE (13:00)
[2022-05-17] MEDS: ACETYLCYSTEINE 20% 4 ML VIAL (RT) INH SCH (19:52)
[2022-05-17] MEDS: QUEtiapine FUMARATE 25 MG TABLET PO SCH (20:59)
[2022-05-18] VITALS (20 sets, daily range): BP systolic 127–188
[2022-05-18] MEDS: IPRATROPIUM/ALBUTEROL SULFATE 3 ML AMPUL.NEB (DUONEB) INH SCH ×6 (03:50→23:37)
[2022-05-18] MEDS: hydrALAZINE HCL 25 MG TABLET PO SCH ×3 (05:36→21:31)
[2022-05-18] MEDS: PIPERACILLIN/TAZO 4.5GM/DEX-IS 100 ML IV SCH ×3 (07:03→21:31)
[2022-05-18] MEDS: ACETYLCYSTEINE 20% 4 ML VIAL (RT) INH SCH ×2 (07:35→19:37)
[2022-05-18] MEDS: metroNIDAZOLE 500 mg/NS 100 ML IV SCH ×3 (07:55→21:30)
[2022-05-18] MEDS: FUROSEMIDE 20 MG/2 ML VIAL IVP SCH ×2 (08:24→21:29)
[2022-05-18] MEDS: QUEtiapine FUMARATE 25 MG TABLET PO SCH ×2 (08:25→21:30)
[2022-05-18] MEDS: FAMOTIDINE 20 MG TABLET PO SCH ×2 (08:25→21:30)
[2022-05-18] MEDS: predniSONE 20 MG TABLET PO SCH ×2 (08:25→21:30)
[2022-05-18] MEDS: CARVEDILOL 25 MG TABLET (COREG) PO SCH ×2 (08:25→21:30)
[2022-05-18 08:31] LABS: BASOPHILS % (AUTO) 0.2 % (0.0-2.0); CREATININE 0.63 mg/dL (0.55-1.30); EOSINOPHILS % (AUTO) 0.1 % (0.0-4.0); HEMATOCRIT 33.4 % (36-54); HEMOGLOBIN 11.4 g/dL (14.0-18.0); LYMPHOCYTES # (AUTO) 0.7 K/uL (1.0-5.5); LYMPHOCYTES % (AUTO) 3.8 % (20.5-51.5); MEAN CORPUSCULAR HEMOGLOBIN 30 pg (27-31); MEAN CORPUSCULAR HGB CONC 34 % (32-36); MEAN CORPUSCULAR VOLUME 88 fL (79.0-98.0); MONOCYTES # (AUTO) 0.9 K/uL (0.0-1.0); MONOCYTES % (AUTO) 4.8 % (1.7-9.3); NEUTROPHILS # (AUTO) 17.1 K/uL (1.8-7.7); NEUTROPHILS % (AUTO) 91.1 % (40.0-70.0); PLATELET COUNT (AUTO) 163 K/uL (130-430)
[2022-05-18 08:47] LABS: WHITE BLOOD COUNT (AUTO) 18.8 K/uL (4.8-10.8)
[2022-05-19] VITALS (9 sets, daily range): BP systolic 111–156
[2022-05-19] MEDS: IPRATROPIUM/ALBUTEROL SULFATE 3 ML AMPUL.NEB (DUONEB) INH SCH ×6 (03:41→23:26)
[2022-05-19] MEDS: PIPERACILLIN/TAZO 4.5GM/DEX-IS 100 ML IV SCH (06:16)
[2022-05-19] MEDS: metroNIDAZOLE 500 mg/NS 100 ML IV SCH ×3 (06:17→21:47)
[2022-05-19] MEDS: hydrALAZINE HCL 25 MG TABLET PO SCH ×3 (06:20→21:45)
[2022-05-19 06:37] LABS: EOSINOPHILS % (AUTO) 0.1 % (0.0-4.0); HEMATOCRIT 31.9 % (36-54); HEMOGLOBIN 10.9 g/dL (14.0-18.0); LYMPHOCYTES # (AUTO) 0.6 K/uL (1.0-5.5); LYMPHOCYTES % (AUTO) 4.4 % (20.5-51.5); MEAN CORPUSCULAR HEMOGLOBIN 30 pg (27-31); MEAN CORPUSCULAR HGB CONC 34 % (32-36); MEAN CORPUSCULAR VOLUME 88 fL (79.0-98.0); MONOCYTES # (AUTO) 0.5 K/uL (0.0-1.0); MONOCYTES % (AUTO) 4.1 % (1.7-9.3); NEUTROPHILS # (AUTO) 12.1 K/uL (1.8-7.7); NEUTROPHILS % (AUTO) 91.4 % (40.0-70.0); PLATELET COUNT (AUTO) 172 K/uL (130-430); RED BLOOD CELL COUNT(AUTO) 3.61 MIL/uL (4.2-6.2); WHITE BLOOD COUNT (AUTO) 13.2 K/uL (4.8-10.8)
[2022-05-19 07:39] LABS: CALCIUM 7.6 mg/dL (8.4-11.0); CREATININE 0.59 mg/dL (0.55-1.30)
[2022-05-19] MEDS: ACETYLCYSTEINE 20% 4 ML VIAL (RT) INH SCH ×2 (07:45→19:44)
[2022-05-19] MEDS: predniSONE 20 MG TABLET PO SCH ×2 (08:46→21:46)
[2022-05-19] MEDS: FAMOTIDINE 20 MG TABLET PO SCH ×2 (08:46→21:46)
[2022-05-19] MEDS: QUEtiapine FUMARATE 25 MG TABLET PO SCH ×2 (08:46→21:46)
[2022-05-19] MEDS: CARVEDILOL 25 MG TABLET (COREG) PO SCH ×2 (08:47→21:44)
[2022-05-19] MEDS: FUROSEMIDE 20 MG/2 ML VIAL IVP SCH (08:47)
[2022-05-19] MEDS ORDERED: MULTIVITS,CA,MINERALS/IRON/FA 1 TABLET PO ONE (12:00)
[2022-05-20] MEDS: IPRATROPIUM/ALBUTEROL SULFATE 3 ML AMPUL.NEB (DUONEB) INH SCH ×6 (04:00→23:00)
[2022-05-20] MEDS: hydrALAZINE HCL 25 MG TABLET PO SCH ×3 (07:16→22:48)
[2022-05-20] MEDS: metroNIDAZOLE 500 mg/NS 100 ML IV SCH ×3 (07:17→22:49)
[2022-05-20] MEDS: ACETYLCYSTEINE 20% 4 ML VIAL (RT) INH SCH (07:46)
[2022-05-20 09:01] VITALS: BP_SYST 126
[2022-05-20] MEDS: predniSONE 20 MG TABLET PO SCH ×2 (09:03→22:45)
[2022-05-20] MEDS: CARVEDILOL 25 MG TABLET (COREG) PO SCH ×2 (09:03→22:47)
[2022-05-20] MEDS: FUROSEMIDE 40 MG TABLET PO SCH (09:03)
[2022-05-20] MEDS: FAMOTIDINE 20 MG TABLET PO SCH ×2 (09:04→22:47)
[2022-05-20] MEDS: MULTIVITS,CA,MINERALS/IRON/FA 1 TABLET PO SCH (09:04)
[2022-05-20] MEDS: QUEtiapine FUMARATE 25 MG TABLET PO SCH ×2 (09:04→22:45)
[2022-05-20] MEDS: cloNIDine HCL 0.2 MG/24 HR PATCH.TDWK TD SCH (09:05)
[2022-05-20 14:19] VITALS: BP_SYST 106
[2022-05-21] MEDS: IPRATROPIUM/ALBUTEROL SULFATE 3 ML AMPUL.NEB (DUONEB) INH SCH ×6 (03:00→23:00)
[2022-05-21 08:42] VITALS: BP_SYST 113
[2022-05-21] MEDS: FAMOTIDINE 20 MG TABLET PO SCH ×2 (08:44→21:05)
[2022-05-21] MEDS: FUROSEMIDE 40 MG TABLET PO SCH (08:44)
[2022-05-21] MEDS: CARVEDILOL 25 MG TABLET (COREG) PO SCH ×2 (08:45→21:05)
[2022-05-21] MEDS: MULTIVITS,CA,MINERALS/IRON/FA 1 TABLET PO SCH (08:45)
[2022-05-21] MEDS: predniSONE 20 MG TABLET PO SCH ×2 (08:45→21:05)
[2022-05-21] MEDS: QUEtiapine FUMARATE 25 MG TABLET PO SCH ×3 (08:46→21:14)
[2022-05-21 11:27] VITALS: BP_SYST 125
[2022-05-21 16:02] LABS: BASOPHILS % (AUTO) 0.2 % (0.0-2.0); EOSINOPHILS % (AUTO) 0.1 % (0.0-4.0); HEMATOCRIT 33.1 % (36-54); HEMOGLOBIN 11.3 g/dL (14.0-18.0); LYMPHOCYTES # (AUTO) 0.4 K/uL (1.0-5.5); LYMPHOCYTES % (AUTO) 3.1 % (20.5-51.5); MEAN CORPUSCULAR HEMOGLOBIN 30 pg (27-31); MEAN CORPUSCULAR HGB CONC 34 % (32-36); MEAN CORPUSCULAR VOLUME 89 fL (79.0-98.0); MONOCYTES # (AUTO) 0.4 K/uL (0.0-1.0); MONOCYTES % (AUTO) 2.5 % (1.7-9.3); NEUTROPHILS # (AUTO) 13.6 K/uL (1.8-7.7); NEUTROPHILS % (AUTO) 94.1 % (40.0-70.0); PLATELET COUNT (AUTO) 235 K/uL (130-430); RED BLOOD CELL COUNT(AUTO) 3.72 MIL/uL (4.2-6.2); RED CELL DISTRIBUTION WIDTH 14.5 % (9.0-15.0); WHITE BLOOD COUNT (AUTO) 14.4 K/uL (4.8-10.8)
[2022-05-21 16:14] LABS: ALBUMIN 2.4 g/dL (3.4-4.8); CREATININE 0.93 mg/dL (0.55-1.30); TOTAL BILIRUBIN 0.3 mg/dL (0.0-1.0)
[2022-05-21 17:03] VITALS: BP_SYST 129
[2022-05-21 20:00] VITALS: BP_SYST 124
[2022-05-21] MEDS: metroNIDAZOLE 500 mg/NS 100 ML IV SCH ×2 (21:09→21:16)
[2022-05-22 00:59] VITALS: BP_SYST 103
[2022-05-22] MEDS: IPRATROPIUM/ALBUTEROL SULFATE 3 ML AMPUL.NEB (DUONEB) INH SCH ×6 (03:00→23:00)
[2022-05-22] MEDS: hydrALAZINE HCL 25 MG TABLET PO SCH ×4 (05:07→22:59)
[2022-05-22] MEDS: metroNIDAZOLE 500 mg/NS 100 ML IV SCH (05:07)
[2022-05-22 08:00] VITALS: BP_SYST 130
[2022-05-22] MEDS: MULTIVITS,CA,MINERALS/IRON/FA 1 TABLET PO SCH (08:44)
[2022-05-22] MEDS: CARVEDILOL 25 MG TABLET (COREG) PO SCH ×2 (08:45→21:48)
[2022-05-22] MEDS: predniSONE 20 MG TABLET PO SCH ×2 (08:45→21:47)
[2022-05-22] MEDS: FAMOTIDINE 20 MG TABLET PO SCH ×2 (08:45→21:47)
[2022-05-22] MEDS: FUROSEMIDE 40 MG TABLET PO SCH (08:46)
[2022-05-22 12:28] VITALS: BP_SYST 105
[2022-05-22 14:54] VITALS: BP_SYST 105
[2022-05-22 20:47] VITALS: BP_SYST 111
[2022-05-22] MEDS: QUEtiapine FUMARATE 25 MG TABLET PO SCH (21:48)
[2022-05-23 01:59] VITALS: BP_SYST 137
[2022-05-23] MEDS: IPRATROPIUM/ALBUTEROL SULFATE 3 ML AMPUL.NEB (DUONEB) INH SCH ×6 (03:43→23:00)
[2022-05-23] MEDS: hydrALAZINE HCL 25 MG TABLET PO SCH ×3 (06:00→22:00)
[2022-05-23 08:18] VITALS: BP_SYST 124
[2022-05-23] MEDS: predniSONE 20 MG TABLET PO SCH ×2 (08:44→21:50)
[2022-05-23] MEDS: CARVEDILOL 25 MG TABLET (COREG) PO SCH ×2 (08:44→21:50)
[2022-05-23] MEDS: MULTIVITS,CA,MINERALS/IRON/FA 1 TABLET PO SCH (08:45)
[2022-05-23] MEDS: FAMOTIDINE 20 MG TABLET PO SCH ×2 (08:45→21:49)
[2022-05-23] MEDS: FUROSEMIDE 40 MG TABLET PO SCH (08:48)
[2022-05-23] MEDS: QUEtiapine FUMARATE 25 MG TABLET PO SCH ×2 (08:48→21:49)
[2022-05-23 13:36] VITALS: BP_SYST 126
[2022-05-23 16:13] VITALS: BP_SYST 121
[2022-05-24 00:32] VITALS: BP_SYST 130
[2022-05-24] MEDS: hydrALAZINE HCL 25 MG TABLET PO SCH ×3 (05:32→22:00)
[2022-05-24] MEDS: IPRATROPIUM/ALBUTEROL SULFATE 3 ML AMPUL.NEB (DUONEB) INH SCH ×6 (06:08→23:00)
[2022-05-24 07:37] VITALS: BP_SYST 122
[2022-05-24] MEDS: predniSONE 20 MG TABLET PO SCH ×2 (09:26→22:09)
[2022-05-24] MEDS: FAMOTIDINE 20 MG TABLET PO SCH ×2 (09:26→22:09)
[2022-05-24] MEDS: FUROSEMIDE 40 MG TABLET PO SCH (09:26)
[2022-05-24] MEDS: MULTIVITS,CA,MINERALS/IRON/FA 1 TABLET PO SCH (09:26)
[2022-05-24] MEDS: QUEtiapine FUMARATE 25 MG TABLET PO SCH ×2 (09:26→22:09)
[2022-05-24] MEDS: CARVEDILOL 25 MG TABLET (COREG) PO SCH ×2 (09:27→22:08)
[2022-05-24 11:10] VITALS: BP_SYST 110
[2022-05-24 19:00] VITALS: BP_SYST 123
[2022-05-24 20:00] VITALS: BP_SYST 123
[2022-05-24] MEDS: MAG-AL HYDROX/SIMETH 30 ML UDC PO PRN (22:14)
[2022-05-25] VITALS: BP_SYST 131
[2022-05-25] MEDS: IPRATROPIUM/ALBUTEROL SULFATE 3 ML AMPUL.NEB (DUONEB) INH SCH ×6 (04:54→23:49)
[2022-05-25] MEDS: hydrALAZINE HCL 25 MG TABLET PO SCH ×2 (06:00→14:51)
[2022-05-25 08:00] VITALS: BP_SYST 132
[2022-05-25 08:58] LABS: BASOPHILS % (AUTO) 0.3 % (0.0-2.0); EOSINOPHILS % (AUTO) 0.2 % (0.0-4.0); HEMATOCRIT 35.4 % (36-54); HEMOGLOBIN 11.8 g/dL (14.0-18.0); LYMPHOCYTES # (AUTO) 1.6 K/uL (1.0-5.5); LYMPHOCYTES % (AUTO) 15.1 % (20.5-51.5); MEAN CORPUSCULAR HEMOGLOBIN 31 pg (27-31); MEAN CORPUSCULAR HGB CONC 34 % (32-36); MEAN CORPUSCULAR VOLUME 92 fL (79.0-98.0); MONOCYTES # (AUTO) 0.5 K/uL (0.0-1.0); MONOCYTES % (AUTO) 4.6 % (1.7-9.3); NEUTROPHILS # (AUTO) 8.3 K/uL (1.8-7.7); NEUTROPHILS % (AUTO) 79.8 % (40.0-70.0); PLATELET COUNT (AUTO) 222 K/uL (130-430); RED BLOOD CELL COUNT(AUTO) 3.86 MIL/uL (4.2-6.2); RED CELL DISTRIBUTION WIDTH 15.7 % (9.0-15.0); WHITE BLOOD COUNT (AUTO) 10.4 K/uL (4.8-10.8)
[2022-05-25] MEDS: QUEtiapine FUMARATE 25 MG TABLET PO SCH ×2 (09:10→21:12)
[2022-05-25] MEDS: FAMOTIDINE 20 MG TABLET PO SCH ×2 (09:10→21:10)
[2022-05-25] MEDS: predniSONE 20 MG TABLET PO SCH ×2 (09:10→21:12)
[2022-05-25] MEDS: MULTIVITS,CA,MINERALS/IRON/FA 1 TABLET PO SCH (09:11)
[2022-05-25 09:14] LABS: ALBUMIN 2.8 g/dL (3.4-4.8); CALCIUM 8.5 mg/dL (8.4-11.0); CREATININE 0.53 mg/dL (0.55-1.30); TOTAL BILIRUBIN 0.5 mg/dL (0.0-1.0)
[2022-05-25] MEDS: CARVEDILOL 25 MG TABLET (COREG) PO SCH ×2 (09:15→21:11)
[2022-05-25] MEDS: FUROSEMIDE 40 MG TABLET PO SCH (09:15)
[2022-05-25 11:32] VITALS: BP_SYST 130
[2022-05-25 16:35] VITALS: BP_SYST 131
[2022-05-25 20:00] VITALS: BP_SYST 114
[2022-05-25 23:44] VITALS: BP_SYST 114
[2022-05-26] VITALS: BP_SYST 111
[2022-05-26] MEDS: IPRATROPIUM/ALBUTEROL SULFATE 3 ML AMPUL.NEB (DUONEB) INH SCH ×5 (03:37→15:51)
[2022-05-26 08:05] VITALS: BP_SYST 124
[2022-05-26] MEDS: hydrALAZINE HCL 25 MG TABLET PO SCH ×3 (08:15→22:00)
[2022-05-26] MEDS: FUROSEMIDE 40 MG TABLET PO SCH (09:00)
[2022-05-26] MEDS: FAMOTIDINE 20 MG TABLET PO SCH ×2 (10:00→21:30)
[2022-05-26] MEDS: QUEtiapine FUMARATE 25 MG TABLET PO SCH ×2 (10:00→21:28)
[2022-05-26] MEDS: MULTIVITS,CA,MINERALS/IRON/FA 1 TABLET PO SCH (10:00)
[2022-05-26] MEDS: predniSONE 20 MG TABLET PO SCH ×2 (10:00→21:26)
[2022-05-26] MEDS: CARVEDILOL 25 MG TABLET (COREG) PO SCH ×2 (10:01→21:27)
[2022-05-26 11:30] VITALS: BP_SYST 101
[2022-05-26 16:03] VITALS: BP_SYST 101
[2022-05-26 20:14] VITALS: BP_SYST 110
[2022-05-27 01:00] VITALS: BP_SYST 115
[2022-05-27] MEDS: hydrALAZINE HCL 25 MG TABLET PO SCH ×4 (06:37→22:24)
[2022-05-27] MEDS: IPRATROPIUM/ALBUTEROL SULFATE 3 ML AMPUL.NEB (DUONEB) INH SCH ×5 (07:25→23:50)
[2022-05-27 08:26] VITALS: BP_SYST 114
[2022-05-27] MEDS: CARVEDILOL 25 MG TABLET (COREG) PO SCH ×3 (09:00→22:21)
[2022-05-27] MEDS: FAMOTIDINE 20 MG TABLET PO SCH ×2 (10:03→22:21)
[2022-05-27] MEDS: predniSONE 20 MG TABLET PO SCH ×2 (10:03→22:21)
[2022-05-27] MEDS: QUEtiapine FUMARATE 25 MG TABLET PO SCH ×2 (10:04→22:22)
[2022-05-27] MEDS: MULTIVITS,CA,MINERALS/IRON/FA 1 TABLET PO SCH (10:04)
[2022-05-27] MEDS: cloNIDine HCL 0.2 MG/24 HR PATCH.TDWK TD SCH (10:11)
[2022-05-27 16:10] VITALS: BP_SYST 115
[2022-05-27] MEDS: MORPHINE SULFATE 30 MG Immediate Release TABLET PO PRN ×2 (16:16→21:50)
[2022-05-27] MEDS ORDERED: MULTIVITS,CA,MINERALS/IRON/FA 1 TABLET PO ONE (17:30)
[2022-05-27 20:00] VITALS: BP_SYST 124
[2022-05-28] VITALS (7 sets, daily range): BP systolic 99–124
[2022-05-28] MEDS: IPRATROPIUM/ALBUTEROL SULFATE 3 ML AMPUL.NEB (DUONEB) INH SCH ×6 (04:12→23:18)
[2022-05-28] MEDS: MORPHINE SULFATE 30 MG Immediate Release TABLET PO PRN ×3 (04:16→17:11)
[2022-05-28] MEDS: hydrALAZINE HCL 25 MG TABLET PO SCH ×3 (06:15→21:35)
[2022-05-28] MEDS: predniSONE 20 MG TABLET PO SCH ×2 (09:30→21:31)
[2022-05-28] MEDS: MULTIVITS,CA,MINERALS/IRON/FA 1 TABLET PO SCH (09:30)
[2022-05-28] MEDS: QUEtiapine FUMARATE 25 MG TABLET PO SCH ×2 (09:30→21:31)
[2022-05-28] MEDS: FAMOTIDINE 20 MG TABLET PO SCH ×2 (09:30→21:31)
[2022-05-28] MEDS: CARVEDILOL 25 MG TABLET (COREG) PO SCH ×2 (09:31→21:34)
[2022-05-28 17:41] LABS: CKMB RELATIVE INDEX 0.6 (0.0-2.9); CREATINE KINASE MB 2.2 ng/mL (0-3.6)
[2022-05-29] VITALS: BP_SYST 115
[2022-05-29] MEDS: MORPHINE SULFATE 30 MG Immediate Release TABLET PO PRN ×4 (03:22→23:42)
[2022-05-29] MEDS: IPRATROPIUM/ALBUTEROL SULFATE 3 ML AMPUL.NEB (DUONEB) INH SCH ×6 (03:23→22:40)
[2022-05-29] MEDS: hydrALAZINE HCL 25 MG TABLET PO SCH ×3 (06:35→21:24)
[2022-05-29 08:00] VITALS: BP_SYST 106
[2022-05-29] MEDS: MULTIVITS,CA,MINERALS/IRON/FA 1 TABLET PO SCH (08:11)
[2022-05-29] MEDS: QUEtiapine FUMARATE 25 MG TABLET PO SCH ×2 (08:11→21:23)
[2022-05-29] MEDS: CARVEDILOL 25 MG TABLET (COREG) PO SCH ×2 (08:11→21:23)
[2022-05-29] MEDS: FAMOTIDINE 20 MG TABLET PO SCH ×2 (08:12→21:22)
[2022-05-29] MEDS: predniSONE 20 MG TABLET PO SCH ×2 (08:12→21:22)
[2022-05-29 11:10] VITALS: BP_SYST 121
[2022-05-29 15:47] VITALS: BP_SYST 119
[2022-05-29 20:00] VITALS: BP_SYST 124
[2022-05-30] VITALS: BP_SYST 106
[2022-05-30] MEDS: IPRATROPIUM/ALBUTEROL SULFATE 3 ML AMPUL.NEB (DUONEB) INH SCH ×6 (03:00→23:41)
[2022-05-30] MEDS: IPRATROPIUM/ALBUTEROL SULFATE 3 ML AMPUL.NEB (DUONEB) INH PRN (05:09)
[2022-05-30] MEDS: MORPHINE SULFATE 30 MG Immediate Release TABLET PO PRN ×3 (05:52→18:59)
[2022-05-30] MEDS: hydrALAZINE HCL 25 MG TABLET PO SCH ×3 (05:54→22:00)
[2022-05-30 08:01] VITALS: BP_SYST 131
[2022-05-30] MEDS: QUEtiapine FUMARATE 25 MG TABLET PO SCH ×2 (08:36→21:58)
[2022-05-30] MEDS: MULTIVITS,CA,MINERALS/IRON/FA 1 TABLET PO SCH (08:36)
[2022-05-30] MEDS: FAMOTIDINE 20 MG TABLET PO SCH ×2 (08:37→22:02)
[2022-05-30] MEDS: predniSONE 20 MG TABLET PO SCH ×2 (08:37→21:58)
[2022-05-30] MEDS: CARVEDILOL 25 MG TABLET (COREG) PO SCH ×2 (08:38→21:59)
[2022-05-30 13:49] VITALS: BP_SYST 108
[2022-05-30 16:30] VITALS: BP_SYST 118
[2022-05-30 20:00] VITALS: BP_SYST 117
[2022-05-31] VITALS (7 sets, daily range): BP systolic 108–147
[2022-05-31] MEDS: MORPHINE SULFATE 30 MG Immediate Release TABLET PO PRN ×4 (01:43→22:33)
[2022-05-31] MEDS: IPRATROPIUM/ALBUTEROL SULFATE 3 ML AMPUL.NEB (DUONEB) INH SCH ×6 (03:24→23:25)
[2022-05-31] MEDS: hydrALAZINE HCL 25 MG TABLET PO SCH ×2 (06:35→11:58)
[2022-05-31 07:25] LABS: BASOPHILS % (AUTO) 0.2 % (0.0-2.0); EOSINOPHILS % (AUTO) 0.5 % (0.0-4.0); HEMATOCRIT 32.6 % (36-54); HEMOGLOBIN 10.9 g/dL (14.0-18.0); LYMPHOCYTES # (AUTO) 0.7 K/uL (1.0-5.5); LYMPHOCYTES % (AUTO) 15.3 % (20.5-51.5); MEAN CORPUSCULAR HEMOGLOBIN 31 pg (27-31); MEAN CORPUSCULAR HGB CONC 34 % (32-36); MEAN CORPUSCULAR VOLUME 94 fL (79.0-98.0); MONOCYTES # (AUTO) 0.3 K/uL (0.0-1.0); MONOCYTES % (AUTO) 7.3 % (1.7-9.3); NEUTROPHILS # (AUTO) 3.6 K/uL (1.8-7.7); NEUTROPHILS % (AUTO) 76.7 % (40.0-70.0); PLATELET COUNT (AUTO) 126 K/uL (130-430); RED BLOOD CELL COUNT(AUTO) 3.47 MIL/uL (4.2-6.2); RED CELL DISTRIBUTION WIDTH 17.7 % (9.0-15.0); WHITE BLOOD COUNT (AUTO) 4.7 K/uL (4.8-10.8)
[2022-05-31 07:47] LABS: ALANINE AMINOTRANSFERASE 54 U/L (12-78); ALBUMIN 2.7 g/dL (3.4-4.8); ASPARTATE AMINOTRANSFERASE 31 U/L (10-37); CALCIUM 8.4 mg/dL (8.4-11.0); CHLORIDE 101 mmol/L (98-107); CREATININE 0.35 mg/dL (0.55-1.30); GLUCOSE 92 mg/dL (70-99); TOTAL BILIRUBIN 0.5 mg/dL (0.0-1.0); UREA NITROGEN, BLOOD 22 mg/dL (8-21)
[2022-05-31 08:20] LABS: ANION GAP < 3 (5-15); C-REACTIVE PROTEIN QUANT < 0.2 mg/dL (0-0.5); ERYTHROCYTE SEDIMENTATION RATE 11 MM/HR (0-15); GFR AFRICAN AMERICAN 335 mL/min (>90)
[2022-05-31] MEDS: FAMOTIDINE 20 MG TABLET PO SCH ×2 (08:36→20:53)
[2022-05-31] MEDS: QUEtiapine FUMARATE 25 MG TABLET PO SCH ×2 (08:36→20:55)
[2022-05-31] MEDS: predniSONE 20 MG TABLET PO SCH (08:37)
[2022-05-31] MEDS: CARVEDILOL 25 MG TABLET (COREG) PO SCH ×2 (08:37→20:57)
[2022-05-31] MEDS: MULTIVITS,CA,MINERALS/IRON/FA 1 TABLET PO SCH (08:37)
[2022-05-31 08:40] LABS: CKMB RELATIVE INDEX 0.5 (0.0-2.9); CREATINE KINASE MB 2.8 ng/mL (0-3.6)
[2022-05-31] MEDS ORDERED: predniSONE 20 MG TABLET PO ONE (11:00)
[2022-05-31] MEDS ORDERED: cloNIDine HCL 0.1 MG TABLET PO PRN (12:30)
[2022-05-31 19:31] LABS: CSF PROTEIN 27 mg/dL (15-45)
[2022-05-31 19:32] LABS: CSF APPEARANCE CLEAR (CLEAR); CSF COLOR COLORLESS (COLORLESS)
[2022-05-31 19:33] LABS: CSF GLUCOSE 74 mg/dL (40-70)
[2022-05-31] MEDS: MAG-AL HYDROX/SIMETH 30 ML UDC PO PRN (20:53)
[2022-05-31 21:52] LABS: CSF MONOCYTES 12 % (15-45); CSF NEUTROPHILS 0 % (0-6); CSF RED BLOOD CELL COUNT #1 4 /uL (0-0); CSF WHITE BLOOD CELL COUNT #1 2 /uL (0-5)
[2022-05-31 22:02] LABS: CSF LYMPHOCYTES 88 % (40-60)
[2022-05-31 22:19] LABS: CSF RED BLOOD CELL COUNT #4 1 /uL (0-0)
[2022-05-31 22:20] LABS: CSF WHITE BLOOD CELL COUNT #4 1 /uL (0-5)
[2022-05-31 22:50] LABS: CSF MONOCYTES #4 0 % (15-45); CSF NEUTROPHILS #4 0 % (0-6)
[2022-06-01] VITALS: BP_SYST 124
[2022-06-01] MEDS: TEMAZEPAM 7.5 MG CAPSULE PO PRN ×2 (01:31→23:58)
[2022-06-01] MEDS: IPRATROPIUM/ALBUTEROL SULFATE 3 ML AMPUL.NEB (DUONEB) INH SCH ×5 (03:00→20:00)
[2022-06-01] MEDS: MORPHINE SULFATE 30 MG Immediate Release TABLET PO PRN ×3 (05:48→22:36)
[2022-06-01] MEDS: MULTIVITS,CA,MINERALS/IRON/FA 1 TABLET PO SCH ×2 (07:56→11:22)
[2022-06-01] MEDS: PSYLLIUM HUSK 1 PKT PACKET PO SCH ×2 (09:00→17:48)
[2022-06-01] MEDS: DOCUSATE SODIUM 250 MG CAPSULE PO SCH ×2 (11:21→22:33)
[2022-06-01] MEDS: FAMOTIDINE 20 MG TABLET PO SCH ×2 (11:22→22:35)
[2022-06-01] MEDS: CARVEDILOL 25 MG TABLET (COREG) PO SCH ×2 (11:22→22:35)
[2022-06-01] MEDS: predniSONE 20 MG TABLET PO SCH (11:23)
[2022-06-01] MEDS: QUEtiapine FUMARATE 25 MG TABLET PO SCH ×2 (11:24→22:34)
[2022-06-01 11:35] VITALS: BP_SYST 104
[2022-06-01 16:41] VITALS: BP_SYST 104
[2022-06-01 21:09] VITALS: BP_SYST 123
[2022-06-02] MEDS: IPRATROPIUM/ALBUTEROL SULFATE 3 ML AMPUL.NEB (DUONEB) INH SCH ×7 (00:08→23:36)
[2022-06-02 00:25] VITALS: BP_SYST 116
[2022-06-02] MEDS: MORPHINE SULFATE 30 MG Immediate Release TABLET PO PRN ×4 (00:48→21:06)
[2022-06-02 08:16] LABS: BASOPHILS % (AUTO) 0.2 % (0.0-2.0); EOSINOPHILS % (AUTO) 0.7 % (0.0-4.0); HEMATOCRIT 32.8 % (36-54); HEMOGLOBIN 10.9 g/dL (14.0-18.0); LYMPHOCYTES # (AUTO) 1.6 K/uL (1.0-5.5); LYMPHOCYTES % (AUTO) 33.4 % (20.5-51.5); MEAN CORPUSCULAR HEMOGLOBIN 31 pg (27-31); MEAN CORPUSCULAR HGB CONC 33 % (32-36); MEAN CORPUSCULAR VOLUME 94 fL (79.0-98.0); MONOCYTES # (AUTO) 0.5 K/uL (0.0-1.0); MONOCYTES % (AUTO) 9.5 % (1.7-9.3); NEUTROPHILS # (AUTO) 2.7 K/uL (1.8-7.7); NEUTROPHILS % (AUTO) 56.2 % (40.0-70.0); PLATELET COUNT (AUTO) 123 K/uL (130-430); RED BLOOD CELL COUNT(AUTO) 3.48 MIL/uL (4.2-6.2); WHITE BLOOD COUNT (AUTO) 4.9 K/uL (4.8-10.8)
[2022-06-02 08:29] LABS: CALCIUM 8.3 mg/dL (8.4-11.0); CREATININE 0.45 mg/dL (0.55-1.30)
[2022-06-02 08:41] VITALS: BP_SYST 112
[2022-06-02] MEDS: DOCUSATE SODIUM 250 MG CAPSULE PO SCH ×2 (08:48→21:04)
[2022-06-02] MEDS: predniSONE 20 MG TABLET PO SCH (08:48)
[2022-06-02] MEDS: FAMOTIDINE 20 MG TABLET PO SCH ×2 (08:48→21:05)
[2022-06-02] MEDS: QUEtiapine FUMARATE 25 MG TABLET PO SCH ×2 (08:49→21:05)
[2022-06-02] MEDS: PSYLLIUM HUSK 1 PKT PACKET PO SCH (08:49)
[2022-06-02] MEDS: CARVEDILOL 25 MG TABLET (COREG) PO SCH ×2 (08:50→21:05)
[2022-06-02 11:10] VITALS: BP_SYST 114
[2022-06-02 13:53] LABS: CSF LYMPHOCYTES #4 100 % (40-60)
[2022-06-02 16:33] VITALS: BP_SYST 113
[2022-06-02 20:00] VITALS: BP_SYST 128
[2022-06-02] MEDS: TEMAZEPAM 7.5 MG CAPSULE PO PRN (23:49)
[2022-06-03] VITALS (7 sets, daily range): BP systolic 117–141
[2022-06-03] MEDS: IPRATROPIUM/ALBUTEROL SULFATE 3 ML AMPUL.NEB (DUONEB) INH SCH ×6 (03:00→22:41)
[2022-06-03] MEDS: MORPHINE SULFATE 30 MG Immediate Release TABLET PO PRN ×3 (05:09→20:26)
[2022-06-03] MEDS: QUEtiapine FUMARATE 25 MG TABLET PO SCH ×2 (08:10→20:28)
[2022-06-03] MEDS: FAMOTIDINE 20 MG TABLET PO SCH ×2 (08:10→20:28)
[2022-06-03] MEDS: MULTIVITS,CA,MINERALS/IRON/FA 1 TABLET PO SCH (08:10)
[2022-06-03] MEDS: predniSONE 20 MG TABLET PO SCH (08:10)
[2022-06-03] MEDS: CARVEDILOL 25 MG TABLET (COREG) PO SCH ×2 (08:11→20:28)
[2022-06-03] MEDS: cloNIDine HCL 0.2 MG/24 HR PATCH.TDWK TD SCH (08:11)
[2022-06-03] MEDS: DOCUSATE SODIUM 250 MG CAPSULE PO SCH ×2 (08:11→20:27)
[2022-06-03] MEDS: PSYLLIUM HUSK 1 PKT PACKET PO SCH (08:11)
[2022-06-03] MEDS ORDERED: MORPHINE SULFATE 30 MG Immediate Release TABLET PO PRN (14:45)
[2022-06-03] MEDS ORDERED: ACETAMINOPHEN 325 MG TABLET PO PRN (14:45)
[2022-06-03] MEDS ORDERED: TEMAZEPAM 7.5 MG CAPSULE ONE (22:55)
[2022-06-03] MEDS: TEMAZEPAM 7.5 MG CAPSULE PO PRN (23:00)
[2022-06-04 01:00] VITALS: BP_SYST 120
[2022-06-04] MEDS: IPRATROPIUM/ALBUTEROL SULFATE 3 ML AMPUL.NEB (DUONEB) INH SCH ×6 (03:00→23:00)
[2022-06-04] MEDS: MORPHINE SULFATE 30 MG Immediate Release TABLET PO PRN ×3 (04:43→20:55)
[2022-06-04 06:09] LABS: BASOPHILS % (AUTO) 0.3 % (0.0-2.0); EOSINOPHILS % (AUTO) 0.9 % (0.0-4.0); HEMATOCRIT 35.7 % (36-54); HEMOGLOBIN 11.8 g/dL (14.0-18.0); LYMPHOCYTES # (AUTO) 1.6 K/uL (1.0-5.5); LYMPHOCYTES % (AUTO) 35.6 % (20.5-51.5); MEAN CORPUSCULAR HEMOGLOBIN 31 pg (27-31); MEAN CORPUSCULAR HGB CONC 33 % (32-36); MEAN CORPUSCULAR VOLUME 95 fL (79.0-98.0); MONOCYTES # (AUTO) 0.5 K/uL (0.0-1.0); MONOCYTES % (AUTO) 10.1 % (1.7-9.3); NEUTROPHILS # (AUTO) 2.4 K/uL (1.8-7.7); NEUTROPHILS % (AUTO) 53.1 % (40.0-70.0); PLATELET COUNT (AUTO) 134 K/uL (130-430); RED BLOOD CELL COUNT(AUTO) 3.78 MIL/uL (4.2-6.2); RED CELL DISTRIBUTION WIDTH 17.7 % (9.0-15.0); WHITE BLOOD COUNT (AUTO) 4.6 K/uL (4.8-10.8)
[2022-06-04 06:57] LABS: CALCIUM 8.3 mg/dL (8.4-11.0); CREATININE 0.46 mg/dL (0.55-1.30)
[2022-06-04 08:00] VITALS: BP_SYST 120
[2022-06-04] MEDS: DOCUSATE SODIUM 250 MG CAPSULE PO SCH ×2 (09:00→20:56)
[2022-06-04] MEDS: FAMOTIDINE 20 MG TABLET PO SCH ×2 (09:16→20:57)
[2022-06-04] MEDS: predniSONE 20 MG TABLET PO SCH (09:16)
[2022-06-04] MEDS: MULTIVITS,CA,MINERALS/IRON/FA 1 TABLET PO SCH (09:16)
[2022-06-04] MEDS: QUEtiapine FUMARATE 25 MG TABLET PO SCH ×2 (09:16→20:57)
[2022-06-04] MEDS: CARVEDILOL 25 MG TABLET (COREG) PO SCH ×2 (09:17→20:57)
[2022-06-04] MEDS: PSYLLIUM HUSK 1 PKT PACKET PO SCH (09:17)
[2022-06-04 11:56] VITALS: BP_SYST 95
[2022-06-04 13:37] VITALS: BP_SYST 106
[2022-06-04 17:10] VITALS: BP_SYST 100
[2022-06-04 20:00] VITALS: BP_SYST 137
[2022-06-04] MEDS ORDERED: TEMAZEPAM 7.5 MG CAPSULE ONE (20:54)
[2022-06-04] MEDS ORDERED: TEMAZEPAM 15 MG CAPSULE ONE (21:06)
[2022-06-04] MEDS: TEMAZEPAM 7.5 MG CAPSULE PO PRN (21:14)
[2022-06-05] VITALS: BP_SYST 116
[2022-06-05] MEDS: IPRATROPIUM/ALBUTEROL SULFATE 3 ML AMPUL.NEB (DUONEB) INH SCH ×6 (04:00→23:00)
[2022-06-05] MEDS: MORPHINE SULFATE 30 MG Immediate Release TABLET PO PRN ×3 (06:26→21:26)
[2022-06-05 08:00] VITALS: BP_SYST 127
[2022-06-05 08:08] LABS: BASOPHILS % (AUTO) 0.3 % (0.0-2.0); EOSINOPHILS % (AUTO) 0.9 % (0.0-4.0); HEMATOCRIT 36.4 % (36-54); HEMOGLOBIN 11.8 g/dL (14.0-18.0); LYMPHOCYTES # (AUTO) 1.7 K/uL (1.0-5.5); LYMPHOCYTES % (AUTO) 37.6 % (20.5-51.5); MEAN CORPUSCULAR HEMOGLOBIN 31 pg (27-31); MEAN CORPUSCULAR HGB CONC 33 % (32-36); MEAN CORPUSCULAR VOLUME 95 fL (79.0-98.0); MONOCYTES # (AUTO) 0.4 K/uL (0.0-1.0); MONOCYTES % (AUTO) 9.1 % (1.7-9.3); NEUTROPHILS # (AUTO) 2.3 K/uL (1.8-7.7); NEUTROPHILS % (AUTO) 52.1 % (40.0-70.0); PLATELET COUNT (AUTO) 143 K/uL (130-430); RED BLOOD CELL COUNT(AUTO) 3.82 MIL/uL (4.2-6.2); WHITE BLOOD COUNT (AUTO) 4.4 K/uL (4.8-10.8)
[2022-06-05 08:26] LABS: ANION GAP 2 (5-15); CALCIUM 8.6 mg/dL (8.4-11.0); CHLORIDE 104 mmol/L (98-107); CREATININE 0.33 mg/dL (0.55-1.30); GLUCOSE 78 mg/dL (70-99); UREA NITROGEN, BLOOD 24 mg/dL (8-21)
[2022-06-05 08:27] LABS: C-REACTIVE PROTEIN QUANT < 0.2 mg/dL (0-0.5); GFR AFRICAN AMERICAN 359 mL/min (>90)
[2022-06-05] MEDS: MULTIVITS,CA,MINERALS/IRON/FA 1 TABLET PO SCH (09:00)
[2022-06-05] MEDS: CARVEDILOL 25 MG TABLET (COREG) PO SCH ×2 (09:00→20:43)
[2022-06-05] MEDS: PSYLLIUM HUSK 1 PKT PACKET PO SCH (09:00)
[2022-06-05] MEDS: FAMOTIDINE 20 MG TABLET PO SCH ×2 (09:00→20:42)
[2022-06-05] MEDS: DOCUSATE SODIUM 250 MG CAPSULE PO SCH ×2 (09:00→20:42)
[2022-06-05] MEDS: predniSONE 20 MG TABLET PO SCH (09:00)
[2022-06-05] MEDS: QUEtiapine FUMARATE 25 MG TABLET PO SCH ×2 (09:00→20:41)
[2022-06-05 12:28] VITALS: BP_SYST 102
[2022-06-05] MEDS ORDERED: CHOLECALCIFEROL (VITAMIN D3) 2,000 UNIT TABLET PO ONE (14:15)
[2022-06-05 15:30] VITALS: BP_SYST 128
[2022-06-05 20:00] VITALS: BP_SYST 143
[2022-06-05] MEDS: TEMAZEPAM 7.5 MG CAPSULE PO PRN (22:30)
[2022-06-06 00:56] VITALS: BP_SYST 110
[2022-06-06] MEDS: IPRATROPIUM/ALBUTEROL SULFATE 3 ML AMPUL.NEB (DUONEB) INH SCH ×6 (02:18→23:15)
[2022-06-06] MEDS: MORPHINE SULFATE 30 MG Immediate Release TABLET PO PRN ×4 (03:51→23:08)
[2022-06-06 08:00] VITALS: BP_SYST 118
[2022-06-06] MEDS: DOCUSATE SODIUM 250 MG CAPSULE PO SCH ×2 (09:52→21:00)
[2022-06-06] MEDS: PSYLLIUM HUSK 1 PKT PACKET PO SCH (09:52)
[2022-06-06] MEDS: QUEtiapine FUMARATE 25 MG TABLET PO SCH ×2 (09:53→21:26)
[2022-06-06] MEDS: CARVEDILOL 25 MG TABLET (COREG) PO SCH ×2 (09:54→21:25)
[2022-06-06] MEDS: FAMOTIDINE 20 MG TABLET PO SCH ×2 (09:55→21:25)
[2022-06-06] MEDS: CHOLECALCIFEROL (VITAMIN D3) 2,000 UNIT TABLET PO SCH (09:55)
[2022-06-06] MEDS: MULTIVITS,CA,MINERALS/IRON/FA 1 TABLET PO SCH (09:55)
[2022-06-06] MEDS: predniSONE 20 MG TABLET PO SCH (09:55)
[2022-06-06 15:21] VITALS: BP_SYST 118
[2022-06-06 15:40] VITALS: BP_SYST 112
[2022-06-06 20:00] VITALS: BP_SYST 135
[2022-06-06] MEDS: TEMAZEPAM 7.5 MG CAPSULE PO PRN (23:07)
[2022-06-07 00:14] VITALS: BP_SYST 103
[2022-06-07] MEDS: IPRATROPIUM/ALBUTEROL SULFATE 3 ML AMPUL.NEB (DUONEB) INH SCH ×5 (03:00→21:13)
[2022-06-07] MEDS: MORPHINE SULFATE 30 MG Immediate Release TABLET PO PRN ×3 (05:32→17:42)
[2022-06-07 08:00] VITALS: BP_SYST 105
[2022-06-07] MEDS: QUEtiapine FUMARATE 25 MG TABLET PO SCH ×2 (09:54→20:26)
[2022-06-07] MEDS: CARVEDILOL 25 MG TABLET (COREG) PO SCH ×2 (09:54→20:27)
[2022-06-07] MEDS: PSYLLIUM HUSK 1 PKT PACKET PO SCH (09:55)
[2022-06-07] MEDS: CHOLECALCIFEROL (VITAMIN D3) 2,000 UNIT TABLET PO SCH (09:55)
[2022-06-07] MEDS: DOCUSATE SODIUM 250 MG CAPSULE PO SCH ×2 (09:55→20:27)
[2022-06-07] MEDS: FAMOTIDINE 20 MG TABLET PO SCH ×2 (09:56→20:27)
[2022-06-07] MEDS: MULTIVITS,CA,MINERALS/IRON/FA 1 TABLET PO SCH (09:56)
[2022-06-07] MEDS: predniSONE 20 MG TABLET PO SCH (09:56)
[2022-06-07 11:20] VITALS: BP_SYST 146
[2022-06-07 15:35] VITALS: BP_SYST 130
[2022-06-07 20:00] VITALS: BP_SYST 108
[2022-06-08 00:19] VITALS: BP_SYST 104
[2022-06-08] MEDS: MORPHINE SULFATE 30 MG Immediate Release TABLET PO PRN ×3 (00:22→23:06)
[2022-06-08] MEDS: TEMAZEPAM 15 MG CAPSULE PO PRN ×2 (00:25→23:05)
[2022-06-08] MEDS: IPRATROPIUM/ALBUTEROL SULFATE 3 ML AMPUL.NEB (DUONEB) INH SCH ×6 (01:47→20:16)
[2022-06-08 07:00] VITALS: BP_SYST 103
[2022-06-08] MEDS: CHOLECALCIFEROL (VITAMIN D3) 2,000 UNIT TABLET PO SCH (09:00)
[2022-06-08] MEDS: predniSONE 20 MG TABLET PO SCH (09:00)
[2022-06-08] MEDS: FAMOTIDINE 20 MG TABLET PO SCH ×2 (09:00→23:05)
[2022-06-08] MEDS: QUEtiapine FUMARATE 25 MG TABLET PO SCH ×2 (09:00→23:04)
[2022-06-08] MEDS: MULTIVITS,CA,MINERALS/IRON/FA 1 TABLET PO SCH (09:00)
[2022-06-08] MEDS: DOCUSATE SODIUM 250 MG CAPSULE PO SCH ×2 (09:00→23:05)
[2022-06-08] MEDS: CARVEDILOL 25 MG TABLET (COREG) PO SCH ×2 (09:00→23:10)
[2022-06-08] MEDS: PSYLLIUM HUSK 1 PKT PACKET PO SCH (09:00)
[2022-06-08 11:45] VITALS: BP_SYST 103
[2022-06-08 15:55] VITALS: BP_SYST 114
[2022-06-08 23:11] VITALS: BP_SYST 127
[2022-06-09] MEDS: MORPHINE SULFATE 30 MG Immediate Release TABLET PO PRN ×3 (06:36→18:38)
[2022-06-09] MEDS: IPRATROPIUM/ALBUTEROL SULFATE 3 ML AMPUL.NEB (DUONEB) INH SCH ×5 (07:06→23:30)
[2022-06-09 08:27] VITALS: BP_SYST 118
[2022-06-09] MEDS: PSYLLIUM HUSK 1 PKT PACKET PO SCH (09:00)
[2022-06-09] MEDS: DOCUSATE SODIUM 250 MG CAPSULE PO SCH (10:12)
[2022-06-09] MEDS: MULTIVITS,CA,MINERALS/IRON/FA 1 TABLET PO SCH (10:12)
[2022-06-09] MEDS: predniSONE 20 MG TABLET PO SCH (10:12)
[2022-06-09] MEDS: CHOLECALCIFEROL (VITAMIN D3) 2,000 UNIT TABLET PO SCH (10:13)
[2022-06-09] MEDS: FAMOTIDINE 20 MG TABLET PO SCH (10:13)
[2022-06-09] MEDS: QUEtiapine FUMARATE 25 MG TABLET PO SCH (10:13)
[2022-06-09] MEDS: CARVEDILOL 25 MG TABLET (COREG) PO SCH (10:14)
[2022-06-09 10:52] LABS: CALCIUM 8.8 mg/dL (8.4-11.0); CREATININE 0.58 mg/dL (0.55-1.30)
[2022-06-09 10:58] LABS: BASOPHILS % (AUTO) 0.5 % (0.0-2.0); EOSINOPHILS % (AUTO) 0.7 % (0.0-4.0); HEMATOCRIT 40.2 % (36-54); HEMOGLOBIN 13.1 g/dL (14.0-18.0); LYMPHOCYTES # (AUTO) 2.3 K/uL (1.0-5.5); LYMPHOCYTES % (AUTO) 33.6 % (20.5-51.5); MEAN CORPUSCULAR HEMOGLOBIN 31 pg (27-31); MEAN CORPUSCULAR HGB CONC 33 % (32-36); MEAN CORPUSCULAR VOLUME 95 fL (79.0-98.0); MONOCYTES % (AUTO) 8.1 % (1.7-9.3); NEUTROPHILS # (AUTO) 3.9 K/uL (1.8-7.7); NEUTROPHILS % (AUTO) 57.1 % (40.0-70.0); PLATELET COUNT (AUTO) 157 K/uL (130-430); RED BLOOD CELL COUNT(AUTO) 4.25 MIL/uL (4.2-6.2); RED CELL DISTRIBUTION WIDTH 17.9 % (9.0-15.0); WHITE BLOOD COUNT (AUTO) 6.8 K/uL (4.8-10.8)
[2022-06-09 10:59] LABS: MONOCYTES # (AUTO) 0.5 K/uL (0.0-1.0)
[2022-06-09 12:21] VITALS: BP_SYST 100
[2022-06-09 16:00] VITALS: BP_SYST 98
[2022-06-09 20:36] VITALS: BP_SYST 116
[2022-06-09 23:30] VITALS: BP_SYST 108
[2022-06-10] MEDS: QUEtiapine FUMARATE 25 MG TABLET PO SCH ×3 (00:05→21:14)
[2022-06-10] MEDS: FAMOTIDINE 20 MG TABLET PO SCH ×3 (00:05→21:14)
[2022-06-10] MEDS: TEMAZEPAM 15 MG CAPSULE PO PRN ×2 (00:05→21:14)
[2022-06-10] MEDS: DOCUSATE SODIUM 250 MG CAPSULE PO SCH ×3 (00:05→21:14)
[2022-06-10] MEDS: CARVEDILOL 25 MG TABLET (COREG) PO SCH ×3 (00:06→21:15)
[2022-06-10] MEDS: MORPHINE SULFATE 30 MG Immediate Release TABLET PO PRN ×4 (00:07→19:58)
[2022-06-10] MEDS: IPRATROPIUM/ALBUTEROL SULFATE 3 ML AMPUL.NEB (DUONEB) INH SCH ×5 (07:00→23:34)
[2022-06-10 07:47] VITALS: BP_SYST 114
[2022-06-10] MEDS: PSYLLIUM HUSK 1 PKT PACKET PO SCH (09:00)
[2022-06-10] MEDS: cloNIDine HCL 0.2 MG/24 HR PATCH.TDWK TD SCH (09:00)
[2022-06-10] MEDS: MULTIVITS,CA,MINERALS/IRON/FA 1 TABLET PO SCH (09:59)
[2022-06-10] MEDS: CHOLECALCIFEROL (VITAMIN D3) 2,000 UNIT TABLET PO SCH (09:59)
[2022-06-10] MEDS: predniSONE 20 MG TABLET PO SCH (10:01)
[2022-06-10 16:00] VITALS: BP_SYST 100
[2022-06-10 20:00] VITALS: BP_SYST 116
[2022-06-11] MEDS: MORPHINE SULFATE 30 MG Immediate Release TABLET PO PRN ×4 (02:18→21:20)
[2022-06-11] MEDS: IPRATROPIUM/ALBUTEROL SULFATE 3 ML AMPUL.NEB (DUONEB) INH SCH ×6 (03:00→23:06)
[2022-06-11 05:53] VITALS: BP_SYST 99
[2022-06-11 08:00] VITALS: BP_SYST 129
[2022-06-11] MEDS: FAMOTIDINE 20 MG TABLET PO SCH ×2 (09:30→22:06)
[2022-06-11] MEDS: CHOLECALCIFEROL (VITAMIN D3) 2,000 UNIT TABLET PO SCH (09:30)
[2022-06-11] MEDS: DOCUSATE SODIUM 250 MG CAPSULE PO SCH ×2 (09:30→22:04)
[2022-06-11] MEDS: CARVEDILOL 25 MG TABLET (COREG) PO SCH ×2 (09:31→22:06)
[2022-06-11] MEDS: predniSONE 20 MG TABLET PO SCH (09:31)
[2022-06-11] MEDS: QUEtiapine FUMARATE 25 MG TABLET PO SCH ×2 (09:31→22:05)
[2022-06-11] MEDS: MULTIVITS,CA,MINERALS/IRON/FA 1 TABLET PO SCH (09:32)
[2022-06-11] MEDS: PSYLLIUM HUSK 1 PKT PACKET PO SCH (09:32)
[2022-06-11 16:05] VITALS: BP_SYST 115
[2022-06-11] MEDS: TEMAZEPAM 15 MG CAPSULE PO PRN (22:19)
[2022-06-12] MEDS: IPRATROPIUM/ALBUTEROL SULFATE 3 ML AMPUL.NEB (DUONEB) INH SCH ×4 (03:00→15:48)
[2022-06-12 07:00] VITALS: BP_SYST 130
[2022-06-12] MEDS: CHOLECALCIFEROL (VITAMIN D3) 2,000 UNIT TABLET PO SCH (10:00)
[2022-06-12] MEDS: QUEtiapine FUMARATE 25 MG TABLET PO SCH ×2 (10:00→20:35)
[2022-06-12] MEDS: predniSONE 10 MG TABLET PO SCH (10:00)
[2022-06-12] MEDS: PSYLLIUM HUSK 1 PKT PACKET PO SCH (10:00)
[2022-06-12] MEDS: DOCUSATE SODIUM 250 MG CAPSULE PO SCH ×2 (10:00→20:35)
[2022-06-12] MEDS: MULTIVITS,CA,MINERALS/IRON/FA 1 TABLET PO SCH (10:00)
[2022-06-12] MEDS: CARVEDILOL 25 MG TABLET (COREG) PO SCH ×2 (10:00→20:36)
[2022-06-12] MEDS: FAMOTIDINE 20 MG TABLET PO SCH ×2 (10:00→20:35)
[2022-06-12 11:10] VITALS: BP_SYST 117
[2022-06-12] MEDS: MORPHINE SULFATE 30 MG Immediate Release TABLET PO PRN ×2 (14:30→20:36)
[2022-06-12 15:40] VITALS: BP_SYST 112
[2022-06-12 20:10] VITALS: BP_SYST 106
[2022-06-12] MEDS: TEMAZEPAM 15 MG CAPSULE PO PRN (22:12)
[2022-06-12] MEDS: IPRATROPIUM/ALBUTEROL SULFATE 3 ML AMPUL.NEB (DUONEB) INH PRN (23:22)
[2022-06-13 01:37] VITALS: BP_SYST 126
[2022-06-13] MEDS ORDERED: MORPHINE SULFATE 30 MG Immediate Release TABLET PO PRN ×2 (06:30→06:45)
[2022-06-13] MEDS ORDERED: MORPHINE SULFATE 15 MG TABLET.ER PO PRN (06:30)
[2022-06-13] MEDS: MORPHINE SULFATE 30 MG Immediate Release TABLET PO PRN ×6 (06:33→22:58)
[2022-06-13] MEDS: IPRATROPIUM/ALBUTEROL SULFATE 3 ML AMPUL.NEB (DUONEB) INH SCH ×5 (07:09→23:24)
[2022-06-13 08:00] VITALS: BP_SYST 118
[2022-06-13] MEDS: CARVEDILOL 25 MG TABLET (COREG) PO SCH (09:12)
[2022-06-13] MEDS: FAMOTIDINE 20 MG TABLET PO SCH ×2 (09:13→22:32)
[2022-06-13] MEDS: MULTIVITS,CA,MINERALS/IRON/FA 1 TABLET PO SCH (09:13)
[2022-06-13] MEDS: CHOLECALCIFEROL (VITAMIN D3) 2,000 UNIT TABLET PO SCH (09:13)
[2022-06-13] MEDS: predniSONE 10 MG TABLET PO SCH (09:13)
[2022-06-13] MEDS: PSYLLIUM HUSK 1 PKT PACKET PO SCH (09:14)
[2022-06-13] MEDS: DOCUSATE SODIUM 250 MG CAPSULE PO SCH ×2 (09:14→22:30)
[2022-06-13] MEDS: QUEtiapine FUMARATE 25 MG TABLET PO SCH ×2 (09:14→18:40)
[2022-06-13 12:00] VITALS: BP_SYST 120
[2022-06-13 16:28] VITALS: BP_SYST 119
[2022-06-13 20:00] VITALS: BP_SYST 114
[2022-06-13] MEDS: CARVEDILOL 12.5 MG TABLET (COREG) PO SCH (22:32)
[2022-06-13] MEDS: TEMAZEPAM 15 MG CAPSULE PO PRN (22:34)
[2022-06-14] VITALS: BP_SYST 130
[2022-06-14] MEDS: IPRATROPIUM/ALBUTEROL SULFATE 3 ML AMPUL.NEB (DUONEB) INH SCH ×6 (03:10→23:29)
[2022-06-14] MEDS: MORPHINE SULFATE 30 MG Immediate Release TABLET PO PRN ×5 (05:03→23:37)
[2022-06-14] MEDS: DOCUSATE SODIUM 250 MG CAPSULE PO SCH ×2 (09:28→21:16)
[2022-06-14] MEDS: MULTIVITS,CA,MINERALS/IRON/FA 1 TABLET PO SCH (09:28)
[2022-06-14] MEDS: FAMOTIDINE 20 MG TABLET PO SCH ×2 (09:28→21:16)
[2022-06-14] MEDS: CHOLECALCIFEROL (VITAMIN D3) 2,000 UNIT TABLET PO SCH (09:28)
[2022-06-14] MEDS: PSYLLIUM HUSK 1 PKT PACKET PO SCH (09:29)
[2022-06-14] MEDS: predniSONE 10 MG TABLET PO SCH (09:29)
[2022-06-14] MEDS: CARVEDILOL 12.5 MG TABLET (COREG) PO SCH ×2 (09:29→21:27)
[2022-06-14 12:00] VITALS: BP_SYST 121
[2022-06-14 16:00] VITALS: BP_SYST 118
[2022-06-14] MEDS: QUEtiapine FUMARATE 25 MG TABLET PO SCH (17:39)
[2022-06-14 20:00] VITALS: BP_SYST 124
[2022-06-14] MEDS: TEMAZEPAM 15 MG CAPSULE PO PRN (21:16)
[2022-06-15] VITALS (10 sets, daily range): BP systolic 115–146
[2022-06-15] MEDS: IPRATROPIUM/ALBUTEROL SULFATE 3 ML AMPUL.NEB (DUONEB) INH SCH ×5 (03:00→21:07)
[2022-06-15] MEDS: MORPHINE SULFATE 30 MG Immediate Release TABLET PO PRN ×4 (05:53→20:40)
[2022-06-15 07:02] LABS: BASOPHILS # (AUTO) 0.1 K/uL (0.0-0.2); BASOPHILS % (AUTO) 0.6 % (0.0-2.0); EOSINOPHILS % (AUTO) 0.3 % (0.0-4.0); HEMATOCRIT 42.2 % (36-54); HEMOGLOBIN 13.8 g/dL (14.0-18.0); LYMPHOCYTES # (AUTO) 2.7 K/uL (1.0-5.5); LYMPHOCYTES % (AUTO) 28.1 % (20.5-51.5); MEAN CORPUSCULAR HEMOGLOBIN 31 pg (27-31); MEAN CORPUSCULAR HGB CONC 33 % (32-36); MEAN CORPUSCULAR VOLUME 95 fL (79.0-98.0); MONOCYTES # (AUTO) 0.7 K/uL (0.0-1.0); MONOCYTES % (AUTO) 7.5 % (1.7-9.3); NEUTROPHILS # (AUTO) 6.2 K/uL (1.8-7.7); NEUTROPHILS % (AUTO) 63.5 % (40.0-70.0); PLATELET COUNT (AUTO) 179 K/uL (130-430); RED BLOOD CELL COUNT(AUTO) 4.45 MIL/uL (4.2-6.2); RED CELL DISTRIBUTION WIDTH 17.5 % (9.0-15.0); WHITE BLOOD COUNT (AUTO) 9.7 K/uL (4.8-10.8)
[2022-06-15 07:31] LABS: ALBUMIN 2.9 g/dL (3.4-4.8); CALCIUM 8.7 mg/dL (8.4-11.0); CREATININE 0.53 mg/dL (0.55-1.30); TOTAL BILIRUBIN 0.3 mg/dL (0.0-1.0)
[2022-06-15] MEDS: PSYLLIUM HUSK 1 PKT PACKET PO SCH (09:00)
[2022-06-15] MEDS: predniSONE 10 MG TABLET PO SCH (09:10)
[2022-06-15] MEDS: MULTIVITS,CA,MINERALS/IRON/FA 1 TABLET PO SCH (09:10)
[2022-06-15] MEDS: FAMOTIDINE 20 MG TABLET PO SCH (09:10)
[2022-06-15] MEDS: CARVEDILOL 12.5 MG TABLET (COREG) PO SCH ×2 (09:11→20:40)
[2022-06-15] MEDS: DOCUSATE SODIUM 250 MG CAPSULE PO SCH ×2 (09:11→20:40)
[2022-06-15] MEDS: CHOLECALCIFEROL (VITAMIN D3) 2,000 UNIT TABLET PO SCH (09:11)
== END 2022-06-15 21:34 | DRG 720 ==
LOC: SED 16:59 → UNDOADMIN 21:32 → SIC 21:32 → STU 05-19 05:11 → SMU 05-22 13:33
PROVIDERS: ADMIT Internal Medicine; ATTEND Internal Medicine
PROC: 5A1955Z Respiratory Ventilation, Greater than 96 Consecutive Hours (ICD-10-PCS; principal; 2022-05-05)
PROC: 02HV33Z Insertion of Infusion Device into Superior Vena Cava, Percutaneous Approach (ICD-10-PCS; 2022-05-05)
PROC: B548ZZA Ultrasonography of Superior Vena Cava, Guidance (ICD-10-PCS; 2022-05-05)
PROC: 0BH17EZ Insertion of Endotracheal Airway into Trachea, Via Natural or Artificial Opening (ICD-10-PCS; 2022-05-05)
PROC: 5A0935A Assistance with Respiratory Ventilation, Less than 24 Consecutive Hours, High Flow/Velocity Cannula (ICD-10-PCS; 2022-05-13)
PROC: 5A0935A Assistance with Respiratory Ventilation, Less than 24 Consecutive Hours, High Flow/Velocity Cannula (ICD-10-PCS; 2022-05-14)
PROC: 5A09357 Assistance with Respiratory Ventilation, Less than 24 Consecutive Hours, Continuous Positive Airway Pressure (ICD-10-PCS; 2022-05-14)
PROC: 5A09357 Assistance with Respiratory Ventilation, Less than 24 Consecutive Hours, Continuous Positive Airway Pressure (ICD-10-PCS; 2022-05-15)
PROC: 5A0935A Assistance with Respiratory Ventilation, Less than 24 Consecutive Hours, High Flow/Velocity Cannula (ICD-10-PCS; 2022-05-15)
DX: A41.9 Sepsis, unspecified organism (principal); J96.01 Acute respiratory failure with hypoxia; R65.21 Severe sepsis with septic shock; J18.9 Pneumonia, unspecified organism; E43 Unspecified severe protein-calorie malnutrition; J44.0 Chronic obstructive pulmonary disease with (acute) lower respiratory infection; E87.0 Hyperosmolality and hypernatremia; E66.2 Morbid (severe) obesity with alveolar hypoventilation; J45.901 Unspecified asthma with (acute) exacerbation; J44.1 Chronic obstructive pulmonary disease with (acute) exacerbation; J20.9 Acute bronchitis, unspecified; D64.9 Anemia, unspecified; M60.9 Myositis, unspecified; G62.9 Polyneuropathy, unspecified; Z20.822 Contact with and (suspected) exposure to COVID-19; F15.90 Other stimulant use, unspecified, uncomplicated; Z88.2 Allergy status to sulfonamides; Z91.010 Allergy to peanuts; Z79.899 Other long term (current) drug therapy; Z68.34 Body mass index [BMI] 34.0-34.9, adult; Z91.199 Patient's noncompliance with other medical treatment and regimen due to unspecified reason
CPT/HCPCS: 36415; 36600; 70450-TC; 71045; 71250-TC; 71275; 76376; 76604; 80048; 80053; 80307; 81003; 82085; 82550; 82553; 82803-TC; 82947; 83605; 83735; 83880; 84100; 84157; 84484; 85007; 85025; 85027; 85048; 85651-TC; 86140; 86592; 86606; 86738; 87040; 87070-TC; 87081; 87086; 87205-TC; 87305; 89051-TC; 92610-GN; 93005; 93306; 94002; 94003; 94010; 94640; 94660; 94664; 94668; 94760; 96365; 97110-GP; 97112-GP; 97116-GP; 97163-GP; 97530-GP; 99291; A6209; G0378; J0360; J0456; J0692; J0696; J1030; J1940; J2274; J2543; J2704; J2765; J2930; J3010; J3370; J3475; J3490; J7030; J7050; J7060; J7120; J7512; J7608; J7613; Q9967

== ENCOUNTER 2023-06-26 11:18 | Emergency (ER) | payer MEDICAID, OTHER ==
[~2023-06-26] VITALS: Ht 182.9 cm; Wt 136.1 kg
[2023-06-26 11:18] VITALS: BP_SYST 150; PULSE 78; RESP 20; TEMP 97.8; O2SAT 100
[2023-06-26] MEDS ORDERED: predniSONE 20 MG TABLET PO ONE (11:30)
[2023-06-26] MEDS ORDERED: IPRATROPIUM/ALBUTEROL SULFATE 3 ML AMPUL.NEB (DUONEB) INH ONE (11:30)
[2023-06-26] MEDS ORDERED: ALBMDI INH (11:33)
[2023-06-26] MEDS ORDERED: PRED20TA PO (11:33)
[2023-06-26 11:59] VITALS: O2SAT 99
== END 2023-06-26 12:12 | disposition home or self-care (01) ==
LOC: SED 11:18
DX: J45.901 Unspecified asthma with (acute) exacerbation (principal); I10 Essential (primary) hypertension; R05.9 Cough, unspecified; R06.02 Shortness of breath; Z88.2 Allergy status to sulfonamides; Z91.010 Allergy to peanuts; Z79.899 Other long term (current) drug therapy; Z20.822 Contact with and (suspected) exposure to COVID-19
CPT/HCPCS: 99283; 94664; J7512

== ENCOUNTER 2023-07-20 09:14 | Emergency (ER) | payer MEDICAID, OTHER ==
[~2023-07-20] VITALS: Ht 182.9 cm; Wt 138.3 kg
[~2023-07-20 09:14] MED LIST changes: +ALBMDI INH; +PRED20TA PO
[2023-07-20 09:20] VITALS: BP_SYST 187; PULSE 81; RESP 20; TEMP 98; O2SAT 98
[2023-07-20] MEDS: IPRATROPIUM/ALBUTEROL SULFATE 3 ML AMPUL.NEB (DUONEB) INH ONE (09:37)
[2023-07-20 09:38] VITALS: O2SAT 96
[2023-07-20] MEDS ORDERED: ALBMDI INH (10:51)
[2023-07-20] MEDS ORDERED: PRED20TA PO (10:51)
[2023-07-20] MEDS: LISINOPRIL 10 MG TABLET (PRINIVIL) PO ONE (11:14)
[2023-07-20 11:29] VITALS: BP_SYST 176; PULSE 81; RESP 20; TEMP 98; O2SAT 96
== END 2023-07-20 11:04 | disposition home or self-care (01) ==
LOC: SED 09:14
DX: J44.9 Chronic obstructive pulmonary disease, unspecified (principal); I16.0 Hypertensive urgency; I10 Essential (primary) hypertension; Z79.899 Other long term (current) drug therapy; Z88.2 Allergy status to sulfonamides; Z91.010 Allergy to peanuts; Z91.018 Allergy to other foods
CPT/HCPCS: 71045; 94640; 99283